=== PATIENT | male | born 1940 | race Caucasian/White ===

== ENCOUNTER 2016-05-22 17:04 | Emergency (ER) ==
[2016-05-22] MEDS ORDERED: LABETALOL IV ONE (17:29)
--- NOTE | 2016-05-22 17:40 | PROVIDER DOCUMENTATION ---
HPI-Cardiac General - General Source: patient, EMS - History of Present Illness-Cardiac Quality of Pain: reports: none Severity in ED: mild Onset/Duration: just prior to arrival Timing: improving Context/Activities at Onset: reports: none Palpitation Quality: fast/pounding heart beat History of arrythmia: reports: SVT Recent use of:: reports: no stimulants Nitro Today/Relief: reports: no nitro taken today Aspirin Treatment Today: reports: no aspirin today Similar Symptoms Previously?: Yes Recently Seen Here or By Another Healthcare Provider: No <Romina Sauceda - Last Filed: 05/22/16 17:35> <Nitin Mcfarlane - Last Filed: 05/22/16 19:06> - General Chief Complaint: Palpitations Stated Complaint: elevated hr Time Seen by Provider: 05/22/16 17:12 Allergies/Adverse Reactions: Patient Allergies Allergy/AdvReac Type Severity Reaction Status Date / Time No Known Allergies Allergy Verified 05/22/16 17:17 Home Medications: Home Medication List Medication Instructions Recorded Confirmed Last Taken Type Albuterol Sulfate Inhaler 2 puff INH BID PRN 05/28/15 05/22/16 05/22/16 13:00 History [Ventolin Hfa] Aspirin [Ecotrin] 81 mg PO QPM 05/28/15 05/22/16 05/21/16 21:00 History Diltiazem HCl [Cartia Xt] 1 cap PO BID 05/28/15 05/22/16 05/22/16 09:30 History Tamsulosin [Flomax] 0.4 mg PO QPM 05/28/15 05/22/16 05/21/16 21:00 History Simvastatin 20 mg PO BID 05/22/16 05/22/16 05/22/16 09:30 History - History of Present Illness-Cardiac Nature of Presenting Problem: Reports to er by ems with cc of SVT.PT reports hx of SVT and knows when he is in it states had call 911. EMS reports pt was in fact in SVT HR at 125 upon arrival ems had done vago maneuvurs and pt heart rate had decreased. Pt denies cp,sob,n,v. 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 Hx of PAD,copd, svt,htn,hld. Denies being on home o2. (Romina Sauceda) Review of Systems - Adult - REVIEW OF SYSTEMS - ADULT Constitutional: denies: chills, fever, fatique Eyes: reports: no symptoms reported Ears, Nose, Mouth & Throat: reports: no symptoms reported Cardiovascular: reports: irregular heart rate. denies: chest pain, heart murmur , orthopnea, syncope Respiratory: denies: cough, shortness of breath, wheezing Gastrointestinal: reports: no symptoms reported Genitourinary: reports: no symptoms reported Musculoskeletal: reports: no symptoms reported Integumentary: reports: no symptoms reported Neurological: reports: no symptoms reported Psychiatric: reports: no symptoms reported Endocrine: reports: no symptoms reported Hematologic/Lymphatic: reports: no symptoms reported Allergic/Immunologic: reports: no symptoms reported All Other Systems: Reviewed and Negative <Romina Sauceda - Last Filed: 05/22/16 17:35> Past History - Adult - PAST MEDICAL HISTORY-ADULT Review of Records: reports: Nursing Assessment Review, Medications Reviewed Major Childhood Illnesses: reports: denies history Cardiovascular: reports: arrhythmia, HTN, hyperlipidemia Respiratory: reports: COPD Gastrointestinal: reports: denies history Obstetrical/Gynecological: reports: denies history Genitourinary: reports: denies history Musculoskeletal: reports: denies history Neurological: reports: denies history Endocrine/Immune: reports: denies history Other Conditions: reports: denies history - PRIOR SURGERIES/PROCEDURES Surgical/Procedure History: reports: appendectomy, other (carotidectomy) - IMMUNIZATION STATUS Childhood Immunizations: See Nurse Assessment Flu Vaccine: See Nurse Assessment - FAMILY HISTORY Family History: reviewed, not pertinent - SOCIAL HISTORY Smoking: cigarettes, greater than 1 pack/day Provider spent 3-5 mins advising pt. on dangers of tobacco.: Discussed manners to quit use, and f/u contacts for add'l counseling. Substance Use: none/never <Romina Sauceda - Last Filed: 05/22/16 17:35> Physical Exam-General - PHYSICAL EXAM-ADULT Initial Vital Signs Reviewed: Yes - CONSTITUTIONAL General Appearance: appears well, alert, no apparent distress - EYES Eyes: PERRL/EOMI - HEAD, EARS, NOSE, MOUTH & THROAT HENMT: moist mucous membranes, normal ENT inspection, TMs normal, pharynx normal - RESPIRATORY Respiratory: chest non-tender, lungs clear, normal breath sounds, no pleuratic chest pain, no respiratory distress, no accessory muscle use - CARDIOVASCULAR Cardiovascular: regular rate, rhythm, tachycardia - GASTROINTESTINAL (ABDOMEN) Abdominal Exam: normal bowel sounds, non tender, soft, no organomegaly, no pulsatile mass - MUSCULOSKELETAL Back Exam: normal inspection, no CVA tenderness, no vertebral tenderness Extremity: normal range of motion, no calf tenderness, normal capillary refill, pelvis stable, pedal edema - SKIN Integumentary: normal color, normal turgor, warm/dry - NEUROLOGIC Neurologic: reversing mill roller II-XII nml as tested, grossly normal, no motor/sensory deficits - PSYCHIATRIC Psych/Mental Status: normal mood/affect, normal thought content, normal thought process, oriented x 3 <Romina Sauceda - Last Filed: 05/22/16 17:35> Progress - EKG 1 Time of EKG reading by physician:: 17:04 EKG Read and Signed by:: Ariana Huang EKG Interpretation (*Must complete 3 of following elements*): Abnormal Rate: 111 Rhythm: sinus tach [place]: normal QRS: RBB MA Interval: normal - CHANGE OF SHIFT REPORT (ED Provider) Report Given and Care Transferred to:: Time of Transfer: 18:00 Items Pending: Labs <Romina Sauceda - Last Filed: 05/22/16 17:35> - XRAY 1 XRAY Study: Chest Impression: Abnormal XRAY Interpretation: COPD Changes, nothing acute read by Dr Dotson <Nitin Mcfarlane - Last Filed: 05/22/16 19:06> - PLAN OF CARE/RESULTS Progress/Plan/Lab Results: Orders Category Date Time Status Cardiac Monitoring DIRECTED Care 05/22/16 17:30 Active Saline Loc NOW Care 05/22/16 17:30 Active CHEST-PORTABLE [RAD] Stat Exams 05/22/16 17:29 Ordered CBC WITH ELECTRONIC DIFF [HEME] Stat Lab 05/22/16 17:30 Uncollected CK PROFILE [SP CHEM] Stat Lab 05/22/16 17:30 Uncollected COMPREHENSIVE METABOLIC PANEL [CHEM] Stat Lab 05/22/16 17:30 Uncollected D-DIMER [CHEM] Stat Lab 05/22/16 17:30 Uncollected MAGNESIUM [CHEM] Stat Lab 05/22/16 17:30 Uncollected PRO B-NATRIURETIC PEPTIDE Stat Lab 05/22/16 17:30 Uncollected PROTIME WITH INR [COAG] Stat Lab 05/22/16 17:30 Uncollected PTT [COAG] Stat Lab 05/22/16 17:30 Uncollected TROPONIN T Stat Lab 05/22/16 17:30 Uncollected Labetalol Med 05/22/16 17:29 Discontinued 15 mg IV NOW ONE EKG [EKG] Stat Ther 05/22/16 17:06 Ordered Vital Signs - 24 hr 05/22/16 17:15 Temperature 98.6 F Pulse Rate 110 H Respiratory 20 Rate Blood Pressure 180/87 O2 Sat by Pulse 98 Oximetry (Romina Sauceda) Orders Category Date Time Status Cardiac Monitoring DIRECTED Care 05/22/16 17:30 Active Saline Loc NOW Care 05/22/16 17:30 Active CHEST-PORTABLE [RAD] Stat Exams 05/22/16 17:29 Taken CBC WITH ELECTRONIC DIFF [HEME] Stat Lab 05/22/16 18:02 Completed CK PROFILE [SP CHEM] Stat Lab 05/22/16 18:02 Received COMPREHENSIVE METABOLIC PANEL [CHEM] Stat Lab 05/22/16 18:02 Received D-DIMER [CHEM] Stat Lab 05/22/16 18:02 Completed MAGNESIUM [CHEM] Stat Lab 05/22/16 18:02 Received PRO B-NATRIURETIC PEPTIDE Stat Lab 05/22/16 18:02 Completed PROTIME WITH INR [COAG] Stat Lab 05/22/16 18:02 Completed PTT [COAG] Stat Lab 05/22/16 18:02 Completed TROPONIN T Stat Lab 05/22/16 18:02 Completed Labetalol Med 05/22/16 17:29 Discontinued 15 mg IV NOW ONE EKG [EKG] Stat Ther 05/22/16 17:06 Ordered Vital Signs Temp Pulse Resp BP Pulse Ox 05/22/16 18:15 108 H 20 161/115 98 05/22/16 17:15 98.6 F 110 H 20 180/87 98 No Known Allergies Allergy (Verified 05/22/16 17:17) Albuterol Sulfate Inhaler [Ventolin Hfa] 2 puff INH BID PRN 05/28/15 Aspirin [Ecotrin] 81 mg PO QPM 05/28/15 Diltiazem HCl [Cartia Xt] 1 cap PO BID 05/28/15 Tamsulosin [Flomax] 0.4 mg PO QPM 05/28/15 Simvastatin 20 mg PO BID 05/22/16 I&O 05/21/16 05/22/16 05/23/16 06:59 06:59 06:59 Output Total 100 Balance -100 Laboratory 05/22/16 05/22/16 05/22/16 18:02 18:02 18:02 WBC RBC Hgb Hct MCV MCH MCHC RDW Std Deviation Plt Count MPV Immature Gran % (Auto) Neut % (Auto) Lymph % (Auto) Wood % (Auto) Eos % (Auto) Baso % (Auto) Immature Gran # (Auto) Neut # (Auto) Lymph # (Auto) Wood # (Auto) Eos # (Auto) Baso # (Auto) PT 13.9 H INR 1.37 PTT (Actin FS) 37.3 H D-Dimer Troponin T < 0.010 Bab-E-Krdcduofypa Pept 25 05/22/16 05/22/16 18:02 18:02 WBC 3.71 L RBC 2.97 L Hgb 9.1 L Hct 27.5 L MCV 92.6 MCH 30.6 MCHC 33.1 RDW Std Deviation 13.0 Plt Count 104 L MPV 10.5 H Immature Gran % (Auto) 0.0 Neut % (Auto) 65.2 Lymph % (Auto) 24.5 Wood % (Auto) 7.3 Eos % (Auto) 2.7 Baso % (Auto) 0.3 Immature Gran # (Auto) 0.00 Neut # (Auto) 2.42 Lymph # (Auto) 0.91 L Wood # (Auto) 0.27 Eos # (Auto) 0.10 Baso # (Auto) 0.01 PT INR PTT (Actin FS) D-Dimer 0.41 Troponin T Fnx-T-Mjdditerogn Pept (Nitin Mcfarlane) Departure <Romina Sauceda - Last Filed: 05/22/16 17:35> - Departure Time of Disposition Order: 19:05 Certified Medical Emergency: Emergent <Nitin Mcfarlane - Last Filed: 05/22/16 19:06> - Departure DIAGNOSIS: SVT (supraventricular tachycardia) Disposition: HOME 01 Condition: Stable Additional Instructions: Follow up with Dr Hawkins ED Follow Up Instructions: You have been treated by a care provider in the Emergency Department. These instructions are being provided to you so you can have an understanding of how to care for yourself upon discharge. Upon discharge from the Emergency Department, you are responsible for making arrangements for follow-up care by a physician of your choice. Take all prescribed medications as directed. Return to the Emergency Department immediately for any new or worsening symptoms. You may call the Physician Referral phone number at [phone] to obtain a list of Physicians who are taking new patients. Referrals: Heladio Wood MD [Primary Care Provider] - Mj Hawkins MD [STAFF PHYSICIAN] - Attestation - Scribe Verification/Attestation Scribe:: Romina Sauceda Acting as Scribe for:: Ariana Huang Scribe documention review:: This chart was documented by a scribe and accurately reflects the service the provider performed and the decisions made by the provider. - Scribe Verification/Attestation #2 Shift Change Time: 18:00 Scribe Name: Nitin Mcfarlane Acting as Scribe for:: Prabhjot Dotson <Romina Sauceda - Last Filed: 05/22/16 17:35> - Scribe Verification/Attestation Scribe:: Nitin Mcfarlane Acting as Scribe for:: Prabhjot Dotson Scribe documention review:: This chart was documented by a scribe and accurately reflects the service the provider performed and the decisions made by the provider. <Nitin Mcfarlane - Last Filed: 05/22/16 19:06> Physician Attestation - Physician Attestation I, the provider, attest to the following statement:: Ariana Huang Physician documentation Attestation:: This documentation recorded by the scribe accurately reflects the service I personally performed and the decisions made by me. <Romina Sauceda - Last Filed: 05/22/16 17:35>
[2016-05-22 19:52] LABS: MANUAL DIFF NEEDED? NO
[2016-05-22 20:11] LABS: AGAP 14; ALBUMIN 4.3 g/dL (3.5-5.0); ALKALINE PHOSPHATASE 93 U/L (32-122); BUN 10 mg/dL (8-22); CALCIUM 9.4 mg/dL (8.8-10.2); CHLORIDE 104 mmol/L (98-107); CK PROFILE 80 U/L (24-204); COSMO 290; GOT 13 U/L (10-34); GPT 16 U/L (10-44); MAGNESIUM 2.1 mg/dL (1.5-2.7); POTASSIUM 4.1 mmol/L (3.5-5.1); SODIUM 146 mmol/L (136-145); TCO2 28 mmol/L (25-35); TOTAL BILIRUBIN 0.32 mg/dL (0.20-1.00); TOTAL PROTEIN 6.6 g/dL (6.3-8.3)
[2016-05-22 20:18] LABS: INR 1.02; PROTIME 10.4 Seconds (9.2-11.7); PTT 25.4 Seconds (22.0-36.0)
[2016-05-22 21:08] LABS: BASO% 0.4 % (0.0-0.8); EOS# 0.17 X1000 (0.0-0.7); EOS% 2.1 % (0.0-10.0); HEMATOCRIT 45.9 % (42.0-52.0); HEMOGLOBIN 15.8 g/dL (14.0-18.0); IMM GRAN# 0.03 X1000 (0.0-0.04); IMM GRAN% 0.4 % (0.0-0.5); LYMPH# 2.19 X1000 (1.2-3.4); LYMPH% 27.1 % (20.5-51.1); MCH 31.3 PG (27-31); MCHC 34.4 g/dL (33-37); MCV 91.1 FL (81-99); MONO# 0.61 X1000 (0.11-0.59); MONO% 7.5 % (1.7-9.3); MPV 11.1 FL (7.4-10.4); NEUT% 62.5 % (42.2-75.2); PLT 193 X1000 (130-400); RBC 5.07 XMIL (4.7-6.1)
[2016-05-22 21:48] VITALS: BP 151/79
--- NOTE | 2016-05-23 05:24 | EKG Report ---
Test Performed on : 05/22/2016 5:04:48 PM Test Reason : palpitations Blood Pressure : / mmHG Vent. Rate : 111 BPM Atrial Rate : 111 BPM P-R Int : 176 ms QRS Dur : 136 ms QT Int : 350 ms P-R-T Axes : 027 148 019 degrees QTc Int : 476 ms Sinus tachycardia. Right bundle branch block Abnormal ECG When compared with ECG of 28-MAY-2015 00:40, QRS duration has increased Unconfirmed Result
--- NOTE | 2016-05-23 07:39 | Diag Imaging Result Document ---
PROCEDURE NAME: CHEST-PORTABLE - 05/22/2016 PORTABLE CHEST X-RAY: COMPARISON: 05/28/2015. FINDINGS: The lungs are normally expanded and clear. Heart size and mediastinal contours are normal. No pneumothorax or pleural effusion. IMPRESSION: Negative exam.
== END 2016-05-22 21:48 | disposition home or self-care (01) ==
LOC: ED 17:04
DX: I47.1 Supraventricular tachycardia (principal); R94.31 Abnormal electrocardiogram [ECG] [EKG]; R00.2 Palpitations; I10 Essential (primary) hypertension; E78.5 Hyperlipidemia, unspecified; J44.9 Chronic obstructive pulmonary disease, unspecified; F17.210 Nicotine dependence, cigarettes, uncomplicated; Z79.82 Long term (current) use of aspirin; Z79.899 Other long term (current) drug therapy; Z71.6 Tobacco abuse counseling
CPT/HCPCS: 71010; 80053; 82550; 83735; 83880; 84484; 85025; 85379; 85610; 85730; 93005

== ENCOUNTER 2018-11-13 09:50 | Inpatient (IN) ==
[2018-11-13] MEDS ORDERED: DILAUDID IV PRN (15:02)
[2018-11-13] MEDS ORDERED: LOVENOX SUBQ SCH (15:15)
[2018-11-13 16:02] LABS: BASO# 0.03 X1000 (0.0-0.2); BASO% 0.6 % (0.0-0.8); EOS# 0.16 X1000 (0.0-0.7); EOS% 3.3 % (0.0-10.0); HEMATOCRIT 35.8 % (42.0-52.0); LYMPH# 1.56 X1000 (1.2-3.4); LYMPH% 31.8 % (20.5-51.1); MCH 30.8 PG (27-31); MCHC 33.5 g/dL (33-37); MCV 91.8 FL (81-99); MONO# 0.28 X1000 (0.11-0.59); MONO% 5.7 % (1.7-9.3); MPV 10.7 FL (7.4-10.4); NEUT# 2.87 X1000 (1.4-6.5); NEUT% 58.6 % (42.2-75.2); PLT 190 X1000 (130-400); RDW 13.6 % (11.5-14.5)
[2018-11-13] MEDS: NS 1,000 ML IV SCH (16:08)
[2018-11-13] MEDS: PROTONIX IV SCH (16:09)
[2018-11-13 16:16] LABS: INR 1.04; PROTIME 13.7 Seconds (11.0-16.0)
[2018-11-13 16:31] LABS: AGAP 11; ALB/GLOB RATIO 2.5; ALBUMIN 4.3 g/dL (3.5-5.0); ALKALINE PHOSPHATASE 96 U/L (32-122); BUN 12 mg/dL (8-22); CALCIUM 9.5 mg/dL (8.8-10.2); CHLORIDE 105 mmol/L (98-107); COSMO 281; CREATININE 0.7 mg/dL (0.7-1.2); ESTIMATED GFR > 60; GLUCOSE 125 mg/dL (70-104); GOT 11 U/L (10-34); GPT 9 U/L (10-44); SODIUM 140 mmol/L (136-145); TCO2 24 mmol/L (25-35)
[2018-11-13 17:03] LABS: SED RATE 10 mm/hr (0-15)
[2018-11-13] MEDS ORDERED: KEFZOL 2 GM/D5W 2 GM/50 ML IVPB IV ONE (18:00)
--- NOTE | 2018-11-13 18:37 | Diag Imaging Result Doc PS360 ---
EXAM: XRAY PELVIS W/HIP 2-3VW RT INDICATION: Right Hip Metastatic Lesion TECHNIQUE: 3 views COMPARISON: None. FINDINGS: The bones are osteopenic. The known sclerotic metastatic lesion involving the right femoral neck seen on previous CT is barely perceptible on this plain radiograph. No fracture or dislocation is appreciated. Brachytherapy beads are noted projecting over the lower pelvis. IMPRESSION: Very vague sclerotic lesion involving the right femoral neck that is barely perceptible but is much better seen on a recent CT. Electronically signed by Kristopher Urrutia 11/13/2018 6:35 PM
--- NOTE | 2018-11-13 19:01 | ORTHOPAEDICS CONSULTATION ---
DATE: 11/13/2018 CHIEF COMPLAINT: Right femur pain. HISTORY OF PRESENT ILLNESS: Supa Royal is a 78-year-old male who has been having intermittent right femur pain to the point where he states it actually hurts him to lay down. He has to sit up or walk. He has been seeing Dr. Mckay. Dr. Mckay felt he needed to be admitted after he found that he had a metastatic lesion to his right proximal femur on CT scan. Dr. Mckay stated that his bone scan and PET scan also showed metastatic lesion at the right proximal femur that was blastic and consistent with probably prostate as he has a history of prostate cancer in the past. He has a history of low back pain with DDD and he assumed his pain was from his back. PHYSICAL EXAMINATION: General: Reveals a well-developed well-nourished male. He is alert and cooperative. HEENT: He is hard of hearing, but otherwise cooperative. Extremities: His legs are neurovascularly intact. He does not really having any pain with range of motion at this hip. His leg is neurovascularly intact. REVIEW OF SYSTEMS: Negative for all systems except for as noted above. X-RAYS: I have reviewed his CT scan which shows a sclerotic metastatic lesion in the right proximal femur. This goes across the entire neck and past the calcar to the less trochanter. There is significant DDD of the lumbar spine. IMPRESSION: Right proximal femur metastatic lesion. PLAN: Given his lack of pain and I do not really see significant arthritis in his hip, probably the best option is to place a trochanteric fixation nail and we would get a biopsy and at the same time after the nail was placed he can undergo radiation if needed for the lesion. I am going to get a plain x-ray tonight to assess the extent of the lesion on x-ray and also to evaluate his hips. I suspect the majority of his pain is from his back. cc: MD Michele Hernandez MD Zz Unknown MTDD
[2018-11-13] MEDS: VENTOLIN HFA INH PRN (19:35)
--- NOTE | 2018-11-13 19:46 | HISTORY AND PHYSICAL ---
CHIEF COMPLAINT: Intractable right hip pain for the last 2 weeks, history of fall. HISTORY OF PRESENT ILLNESS: A 78-year-old, white male, had a fall, sustained injury to the right chest and hip pain. Apparently, he was seen in the emergency room on 10/26/2018. During that time, patient was found to have metastatic lesion in the right hip. Subsequently, he was evaluated in my office. He has known history of prostate cancer since 2013, He had radiation seeds implanted in the prostatic bed in 2003, at [facility]. Last PSA was 5.6 in my office. Bone scan revealed right hip lesion was hot as well as the right 10th rib anteriorly. He was seeing also Dr. Perez and he ordered a PET scan, MRI of the right hip. Caregiver reported he was not able to ambulate with excruciating pain, even barely go to the bathroom. He was not able to do MRI. Subsequently, he had some PET scan done, details are not known. I spoke to the interventional radiologist for possible bone marrow biopsy, most likely metastatic disease from prostate cancer. Since he has ongoing pain, not able to ambulate, is about impending fracture, the best option after discussing with the interventional radiologist, admit to the hospital for pain control, and Orthopedic consult for either internal fixation with mao or replacement with bone marrow biopsy. PSA was elevated at 8.6. Pain is adequately controlled with the Dilaudid. I discussed with Dr. Nails and the coordination of care was done through all of the consultants on the telephone since yesterday, and that is the best option to forward, and the family agreed upon. PAST MEDICAL HISTORY: Right bundle-branch block, prostate cancer in remission with radiation seeds, COPD, deafness, hyperlipidemia, hypertension, PSVT, peripheral arterial disease with status post right endarterectomy, ongoing tobacco abuse, claudication symptoms in both legs (MARILYN 0.5, under the care of Dr. Stuart), seborrheic keratosis lesion of the right face. PAST SURGICAL HISTORY: Appendectomy, vasectomy, right carotid endarterectomy. MEDICINES: Aspirin, Plavix, simvastatin, Flomax, Cardizem 120 p.o. b.i.d. ALLERGIES: Not known. SOCIAL HISTORY: since 2014. He is retired from [employer] of [place], [place]. Living in [place]. No smoking. No alcohol. No drug abuse. FAMILY HISTORY: Father of stroke at 63. Mom of diabetes at 71. HEALTH MAINTENANCE: Last physical in 08/2017. REVIEW OF SYSTEMS: HEENT: Deafness. No headache. No vision problem. No goiter or lymphadenopathy. No bruit. Cardiopulmonary: No chest pain, shortness of breath, PND, orthopnea. Gastrointestinal: No nausea, vomiting, abdominal pain. Genitourinary: No history of dysuria, hesitancy, frequency. Claudication symptoms, right hip pain. Neurologic: No focal symptoms or weakness. PHYSICAL EXAMINATION: VITAL SIGNS: Temperature is 97 degrees, pulse is 88, blood pressure is stable. Six feet tall, 240 pounds. HEENT: Severe deafness. Pupils equal, reactive to light. No anemia. No cyanosis. No jaundice. NECK: Supple. No lymphadenopathy. Scar in the right carotid area noted. CHEST: Bilateral air entry. CARDIOVASCULAR: Heart sounds are regular. No murmurs. ABDOMEN: Belly is soft, nontender. Good bowel sounds. No masses palpable and no signs of gangrene. NEUROLOGIC: No obvious neurological deficits. LABORATORY AND DIAGNOSTIC DATA: CBC: White cell count 4.9, hematocrit 35.8, platelets 119,000. PT 13.7, INR 1.0. SMA 7 is normal. LFTs were normal. Total protein 6. PSA was 8.91. Right hip and pelvic x-rays: Bones are osteopenic, sclerotic, metastatic involved right femoral neck. CT scan of the abdomen and pelvis: Bony metastasis in the proximal right femur. Bone scan at [facility]: Right hip was hot and also right 10th rib anteriorly noted. Last cardiac stress test was done on 10/16/2015. ASSESSMENT AND PLAN: A 78-year-old, white gentleman, admitted to the hospital with: 1. Intractable right hip pain, suspicious metastatic lesion, impending fracture. A.) Plan is Orthopedic consult for fixation and bone marrow biopsy. PSA was increasing. Remote history of prostate cancer since 2013, status post radiation seeds in the prostate bed. B.) Reconcile home medicines. C.) Pain control with hydromorphone. D.) Gentle hydration. 2. Peripheral arterial disease with underlying peripheral arterial disease in both legs. Continue aspirin, Plavix. Under the care of Dr. Stuart. 3. Hypertension. Cardizem CD. 4. Deep vein thrombosis and gastrointestinal prophylaxis with Lovenox, Protonix, respectively. Discussed with Dr. Nails. We will follow up. cc: Michele Mckay MD
[2018-11-13] MEDS: FLOMAX PO SCH (23:06)
[2018-11-13] MEDS: ZOCOR PO SCH (23:06)
[2018-11-13] MEDS: CARDIZEM CD PO SCH (23:06)
[2018-11-13] MEDS: ASPIRIN EC PO SCH (23:06)
[2018-11-14] MEDS ORDERED: XYLOCAINE-MPF 2% ONE (07:51)
[2018-11-14] MEDS ORDERED: ZOFRAN ONE (07:51)
[2018-11-14] MEDS ORDERED: ROBINUL ONE (07:51)
[2018-11-14] MEDS ORDERED: DECADRON ONE (07:51)
[2018-11-14] MEDS ORDERED: DIPRIVAN 1% ONE (07:52)
[2018-11-14] MEDS ORDERED: FENTANYL ONE (07:52)
[2018-11-14] MEDS ORDERED: KEFZOL 2 GM/D5W 2 GM/50 ML IVPB IV ONE (10:00)
[2018-11-14] MEDS ORDERED: KEFZOL 2 GM/D5W 2 GM/50 ML IVPB ONE (10:40)
[2018-11-14] MEDS ORDERED: MORPHINE ONE (12:33)
--- NOTE | 2018-11-14 12:46 | PROGRESS NOTE ---
DATE: 11/14/2018 SUBJECTIVE: A 78-year-old white gentleman admitted to the hospital with right hip pain and suspicious bone metastatic disease. Appreciate Dr. Nails. The patient is undergoing metabolic bone marrow biopsy. PSA was high. REVIEW OF SYSTEMS: None reported. Pain is adequately controlled. Vital are stable. Physical exam: No change. ASSESSMENT AND PLAN: 1. Waiting for right hip intramedullary nailing and biopsy and follow up on the biopsy report. 2. I appreciate Dr. Nails's consult and continue present treatment and will follow up. LEVEL OF DOCUMENTATION: 25 minutes. cc: Michele Mckay MD
[2018-11-14] MEDS ORDERED: OXY IR ONE (12:48)
[2018-11-14] MEDS ORDERED: MILK OF MAGNESIA PO PRN (13:49)
[2018-11-14] MEDS ORDERED: ZOFRAN IV PRN (13:49)
[2018-11-14] MEDS ORDERED: HALDOL IV PRN (14:00)
[2018-11-14] MEDS: NS 1,000 ML IV SCH (14:10)
[2018-11-14] MEDS: FLOMAX PO SCH ×2 (14:10→22:41)
[2018-11-14] MEDS: CARDIZEM CD PO SCH ×3 (14:10→22:41)
[2018-11-14] MEDS: TYLENOL PO SCH ×2 (14:20→22:42)
[2018-11-14] MEDS: SODIUM CHLORIDE 0.9% INJ SCH (14:20)
[2018-11-14] MEDS: PROTONIX IV SCH (14:20)
--- NOTE | 2018-11-14 14:35 | OPERATIVE NOTE ---
PROCEDURE DATE: 11/14/2018 PREOPERATIVE DIAGNOSIS: Right proximal femoral metastatic lesion of a blastic type. POSTOPERATIVE DIAGNOSIS: Right proximal femoral metastatic lesion of a blastic type. PROCEDURE: Right long trochanteric fixation nail placement and the reamings were sent to Pathology. BLOOD LOSS: Minimal. ANESTHESIA: General. SURGEON: Willie Nails MD. COMPLICATIONS: None. SPECIMENS: Reamings to Pathology. DESCRIPTION OF PROCEDURE: The patient was brought to the operative suite and placed in supine position. After successful administration of general anesthesia, patient was placed on the OSI table in the usual position for a right trochanteric fixation nail placement. The right hip and leg were prepped and draped in the usual sterile fashion. A longitudinal incision was made proximal to the greater trochanter. A guide pin was placed in the center of the femoral canal on AP and lateral images. It was reamed with a solid cannulated reamer. These reamings were saved for being sent to Pathology. Then, a ball-tipped guide pin was buried in distal metaphysis. The proper length nail of 420 mm was measured. The canal was serially broached to a size 13 with the flexible reamers. These reamings were sent as well, and then the 420 mm x 11 trochanteric fixation nail was driven into place through a stab incision laterally. A guide pin was placed in the center of the femoral head on AP and lateral images. Once this was verified to be in good position, it was measured at 105 mm. It was reamed and these reamings were also sent to Pathology, and then the 105 mm helical blade was driven into place and locked proximally. The proximal guide was removed. Traction was released. Excellent placement of the hardware was obtained on AP and lateral images. Attention was directed to distal locking screws through stab incisions using the perfect circles technique. These were drilled and measured to proper length of 54 and 64, and they were driven into place. Once these were verified to be in good position, the incisions were copiously irrigated. The fascia was closed with 0 Vicryl, skin edges were approximated with 2-0 Vicryl, and skin was closed with skin rob and a sterile dressing was applied. The patient tolerated the procedure without complication. At the end of the procedure, all counts were correct. The patient was transferred to the recovery room in stable condition. cc: Willie Nails MD
[2018-11-14] MEDS: MORPHINE IV PRN ×2 (14:57→18:46)
[2018-11-14] MEDS: VENTOLIN HFA INH PRN ×2 (15:31→19:04)
[2018-11-14] MEDS: OXY IR PO PRN (17:35)
[2018-11-14] MEDS: KEFZOL 1 GM/D5W 1 GM/50 ML IVPB IV SCH (18:46)
[2018-11-14] MEDS: PERIDEX MT SCH (22:40)
[2018-11-14] MEDS: ZOCOR PO SCH (22:41)
[2018-11-14] MEDS: COLACE PO SCH (22:41)
[2018-11-14] MEDS: ASPIRIN EC PO SCH (22:41)
[2018-11-15] MEDS: KEFZOL 1 GM/D5W 1 GM/50 ML IVPB IV SCH ×2 (02:08→10:18)
[2018-11-15] MEDS: OXY IR PO PRN ×3 (02:17→21:01)
[2018-11-15] MEDS: TYLENOL PO SCH ×3 (05:31→21:00)
[2018-11-15] MEDS: LOVENOX SUBQ SCH (05:32)
[2018-11-15 06:18] LABS: AGAP 14; BUN 14 mg/dL (8-22); CALCIUM 9.2 mg/dL (8.8-10.2); CHLORIDE 103 mmol/L (98-107); COSMO 281; CREATININE 0.8 mg/dL (0.7-1.2); ESTIMATED GFR > 60; GLUCOSE 145 mg/dL (70-104); POTASSIUM 4.5 mmol/L (3.5-5.1); SODIUM 139 mmol/L (136-145); TCO2 22 mmol/L (25-35)
--- NOTE | 2018-11-15 08:03 | ORTHOPAEDICS PROGRESS NOTE ---
DATE: 11/15/2018 SUBJECTIVE: Supa Royal is a 78-year-old male who is postoperative day 1 from a right TFN. He has complaints of soreness and swelling in his legs, but otherwise no new complaints. OBJECTIVE: He is a well-developed, well-nourished male. He is cooperative with the exam, just hard of hearing. His dressings are clean, dry, and intact. His leg is neurovascularly intact. He is more comfortable sitting up than lying down. LABORATORY DATA: His hemoglobin is 9. His hematocrit is 27. ASSESSMENT: Stable right trochanteric fixation nail placement. PLAN: We will get therapy to work with him today. He will likely go home versus rehab later in the week, once we get the pathology back and Dr. Perez can address his cancer. cc: MD Michele Hernandez MD
[2018-11-15] MEDS: NS 1,000 ML IV SCH (10:18)
[2018-11-15] MEDS: FLOMAX PO SCH ×2 (10:19→21:00)
[2018-11-15] MEDS: FERROUS SULFATE PO SCH (10:19)
[2018-11-15] MEDS: CARDIZEM CD PO SCH ×2 (10:19→21:00)
[2018-11-15] MEDS: PERIDEX MT SCH ×2 (10:19→21:02)
--- NOTE | 2018-11-15 11:58 | PROGRESS NOTE ---
DATE: 11/15/2018 SUBJECTIVE: I appreciated Dr. Nails. The patient has intramedullary nail on the right hip. Biopsy was done. The patient's pain is adequately controlled. OBJECTIVE: Vital signs: Temperature s 98, pulse 107. Vitals are stable. HEENT: Within normal limits. Neck: Supple. Physical exam with no change. LABS: Hematocrit 27. SMA-7 is normal. PSA was 8.9. ASSESSMENT AND PLAN: Right hip metastatic disease, most likely prostate. We will check the biopsy report. He had a nail placed. Based on the biopsy report, further recommendations will be followed with Dr. Perez and will discuss the plan. We will continue out of the bed with physical therapy and currently medically stable. Continue present treatment for underlying medical problems. LEVEL OF DOCUMENTATION: 25 minutes. cc: Michele Mckay MD
[2018-11-15] MEDS: SODIUM CHLORIDE 0.9% INJ SCH (15:06)
[2018-11-15] MEDS: PROTONIX IV SCH (15:06)
--- NOTE | 2018-11-15 15:44 | CONSULTATION ---
DATE OF CONSULTATION: 11/15/2018 CHIEF COMPLAINT: Phimosis and history of prostate cancer. HISTORY OF PRESENT ILLNESS: Mr. Royal is a 78 year old with peripheral artery disease, COPD, deafness, tobacco abuse, history of prostate cancer status post brachytherapy, who was admitted by his primary care physician due to concern regarding hip fracture. The patient has had multiple imaging studies with bone scan, CT scan and x-ray which showed concern for metastatic lesion in his right femur. The patient was treated for prostate cancer with brachytherapy while living in [facility] in 2003. The patient had a recent PSA at Dr. Mckay's office that was 5.6 with a PSA on admission of 8.9. The patient was seen by Dr. Perez who ordered a PET scan and MRI; however, the patient was not able to tolerate being in an MRI scanner. The patient was taken the operating room yesterday for right femoral intramedullary nailing by Dr. Nails. Urology was consulted today regarding phimosis. The patient states that his foreskin has tightened on him very quickly over the past several months and he feels there is a band like lesion in the foreskin. He denies any dysuria or hematuria. He does occasionally have some urgency to urinate but feels that he empties his bladder to completion. Denies any flank or abdominal pain. PAST MEDICAL HISTORY: 1. Right bundle branch block. 2. Prostate cancer status post brachytherapy. 3. COPD. 4. [place] impairment. 5. Hyperlipidemia. 6. Hypertension. 7. Paroxysmal ventricular tachycardia. 8. Peripheral artery disease. 9. Tobacco abuse. 10. History of seborrheic keratosis. PAST SURGICAL HISTORY: 1. Appendectomy. 2. Cholecystectomy. 3. Right carotid endarterectomy. 4. Brachytherapy. MEDICATIONS: 1. Flomax. 2. Cardizem 120 mg p.o. b.i.d. 3. Plavix. 4. Simvastatin 5. Aspirin. ALLERGIES: No known drug allergies. SOCIAL HISTORY: Persistent smoking. Denies alcohol or illicit drug use. FAMILY HISTORY: Denies family history of malignancy. REVIEW OF SYSTEMS: A 12-point review of systems is performed wit all pertinent positives and negatives in HPI. PHYSICAL EXAMINATION: Vital signs: Temperature 97.8 degrees, heart rate 107, blood pressure 156/51, oxygen saturation 100% on room air. General: No acute distress. Resting comfortably in bed. Alert and oriented x3. HEENT: Normocephalic, atraumatic. Pupils equal, round, reactive to light. The patient is significantly hard of hearing and requires yelling for patient to understand. Mucous membranes moist. Neck: Trachea midline. Respiratory: Good respiratory effort without audible wheezing or rales. Abdomen: Soft, nontender, nondistended. No palpable masses or hepatosplenomegaly. Cardiovascular: Regular rate and rhythm with slight tachycardia. There is 1+ lower extremity edema. : No suprapubic tenderness. No CVA tenderness. Uncircumcised phallus with tight foreskin that is difficult to retract. Bilateral testicles palpated, slightly atrophic. Digital rectal exam deferred due to recent hip surgery. Neurologic: Gross motor and sensory intact. Musculoskeletal: Moving all extremities. The patient has a dressing present over the right thigh. No obvious tenderness to palpation. Skin: No obvious skin lesions or rashes. LABS: White blood cell count 4.9, hemoglobin 9, hematocrit 27.0. Sodium 139, potassium 4.5, chloride 103, bicarb 22, BUN 14, creatinine 0.8, glucose 145. ASSESSMENT AND PLAN: Mr. Royal is a 78 year old with right bundle branch block, prostate cancer status post brachytherapy, COPD, deafness, hyperlipidemia, hypertension, paroxysmal ventricular tachycardia, peripheral arterial disease, status post right endarterectomy, tobacco abuse, claudication, seborrheic keratosis, who presents in consultation regarding phimosis and recent right femur fracture. Uncertain if the patient had true metastatic lesion to the hip. However, the patient does have a slightly elevated PSA at 8.9 on admission. The patient had treatment of prostate cancer back in 2003 with brachytherapy and was told he was cured. The patient denies any voiding complaints at this time. The patient's consult was regarding phimosis. The patient does have a tight foreskin but denies any penile pain or dysuria. He does have a phimotic ring that makes it difficult to retract the foreskin over the head of the penis. I do not think that this is surgically necessary to consider a circumcision at this time. However, he likely will need one in the future. The patient currently would not like to undergo one unless medically necessary. No evidence of balanitis or voiding complaints. I think if these developed, then we could consider a circumcision. The patient is being treated for a possible fracture related to prostate cancer. He was seen by Dr. Perez in the office and likely would need zoledronic acid or denosumab to try to treat his bone health. We will start him on vitamin D and calcium as well at this time. If this is a metastatic lesion, likely need androgen deprivation therapy as well which may unfortunately increase his risk of declining bone health. We will plan to follow up in the outpatient setting for management of his phimosis and prostate cancer. From a urologic standpoint, no significant interventions are necessary at this time. We will continue to monitor. Please call with questions or concerns. cc: MD Michele Gomez MD MTDD
[2018-11-15] MEDS: ZOCOR PO SCH (21:00)
[2018-11-15] MEDS: COLACE PO SCH (21:00)
[2018-11-15] MEDS: ASPIRIN EC PO SCH (21:00)
[2018-11-16] MEDS: TYLENOL PO SCH ×2 (05:27→15:54)
[2018-11-16] MEDS: LOVENOX SUBQ SCH (05:27)
[2018-11-16 06:36] LABS: HEMATOCRIT 23.5 % (42.0-52.0); HEMOGLOBIN 7.5 g/dL (14.0-18.0)
[2018-11-16] MEDS ORDERED: NS 500 ML IV ONE (07:34)
[2018-11-16] MEDS: CARDIZEM CD PO SCH ×2 (08:42→20:23)
[2018-11-16] MEDS: FERROUS SULFATE PO SCH (08:42)
[2018-11-16] MEDS: PERIDEX MT SCH ×2 (08:42→20:24)
[2018-11-16] MEDS: FLOMAX PO SCH ×2 (08:43→20:23)
[2018-11-16] MEDS: CITRACAL + D PO SCH (08:43)
[2018-11-16] MEDS: NS 1,000 ML IV SCH (08:45)
--- NOTE | 2018-11-16 12:02 | PROGRESS NOTE ---
DATE: 11/16/2018 SUBJECTIVE: The patient is out of the bed. Discussed with the family. They want to go for rehabilitation. Hematocrit was 23. Waiting for biopsy report. OBJECTIVE: On exam, temperature is 98.5 degrees, vitals are stable. HEENT exam is within normal limits. Chest is clear. Heart sounds are regular. No neurological deficits. INVESTIGATIONS: Hematocrit 23.5. ASSESSMENT AND PLAN: 1. Status post right intramedullary nailing. Follow up on bone marrow biopsy. 2. Elevated prostate-specific antigen. Follow up with Dr. Restrepo. 3. Phimosis, stable. 4. Anemia due to blood loss. Transfusion of 1 unit of packed RBC. 5. Contaminated Land Consultant consult for rehabilitation placement. 6. Continue present treatment. LEVEL OF DOCUMENTATION: 25 minutes. cc: Michele Mckay MD
--- NOTE | 2018-11-16 12:30 | ORTHOPAEDICS PROGRESS NOTE ---
DATE: 11/16/2018 SUBJECTIVE: Supa Royal is a 78-year-old male, status post right femoral nail placement. He states that he is in no pain when he is resting, although his leg does hurt when he is trying to walk. OBJECTIVE: He is a well-developed, well-nourished male. He is alert and cooperative with the exam. His leg is neurovascularly intact. His dressings are clean, dry, intact. His pathology results are not back yet. ASSESSMENT: Right trochanteric fixation nail placement. PLAN: We are going to change his dressings today. He will likely go home versus rehab later in the week. cc: MD Michele Hernandez MD
[2018-11-16] MEDS: VENTOLIN HFA INH PRN (15:30)
[2018-11-16] MEDS: OXY IR PO PRN ×2 (15:54→20:24)
[2018-11-16] MEDS: PROTONIX PO SCH (17:32)
[2018-11-16] MEDS: ZOCOR PO SCH (20:23)
[2018-11-16] MEDS: COLACE PO SCH (20:23)
[2018-11-16] MEDS: ASPIRIN EC PO SCH (20:23)
[2018-11-17] MEDS: NS 1,000 ML IV SCH (03:55)
[2018-11-17 05:59] LABS: BASO# 0.03 X1000 (0.0-0.2); BASO% 0.5 % (0.0-0.8); EOS# 0.23 X1000 (0.0-0.7); HEMOGLOBIN 8.1 g/dL (14.0-18.0); IMM GRAN# 0.04 X1000 (0.0-0.04); IMM GRAN% 0.7 % (0.0-0.5); LYMPH# 1.81 X1000 (1.2-3.4); LYMPH% 31.4 % (20.5-51.1); MCH 29.8 PG (27-31); MCHC 32.4 g/dL (33-37); MCV 91.9 FL (81-99); MONO# 0.67 X1000 (0.11-0.59); MONO% 11.6 % (1.7-9.3); MPV 11.1 FL (7.4-10.4); NEUT# 2.98 X1000 (1.4-6.5); NEUT% 51.8 % (42.2-75.2); PLT 147 X1000 (130-400); RBC 2.72 XMIL (4.7-6.1); RDW 15.9 % (11.5-14.5); WBC 5.76 X1000 (4.8-10.8)
[2018-11-17] MEDS: TYLENOL PO SCH ×4 (06:04→21:27)
[2018-11-17] MEDS: LOVENOX SUBQ SCH (06:04)
[2018-11-17] MEDS: OXY IR PO PRN ×4 (06:04→21:33)
[2018-11-17 06:26] LABS: AGAP 11; BUN 15 mg/dL (8-22); CALCIUM 8.8 mg/dL (8.8-10.2); CHLORIDE 106 mmol/L (98-107); COSMO 283; CREATININE 0.9 mg/dL (0.7-1.2); ESTIMATED GFR > 60; GLUCOSE 114 mg/dL (70-104); POTASSIUM 3.5 mmol/L (3.5-5.1); SODIUM 141 mmol/L (136-145); TCO2 24 mmol/L (25-35)
[2018-11-17] MEDS: PERIDEX MT SCH ×2 (08:22→21:26)
[2018-11-17] MEDS: CARDIZEM CD PO SCH ×2 (08:22→21:26)
[2018-11-17] MEDS: FERROUS SULFATE PO SCH (08:22)
[2018-11-17] MEDS: FLOMAX PO SCH ×2 (08:22→21:27)
[2018-11-17] MEDS: CITRACAL + D PO SCH (08:22)
--- NOTE | 2018-11-17 08:24 | Diag Imaging Result Doc PS360 ---
EXAM: CHEST-1 VIEW 11/17/2018 HISTORY: rehab TECHNIQUE: AP portable upright at 0808 COMMENT: There is no evidence of acute cardiac or pulmonary disease. Compared to 10/26/2018 there has been no significant change in the appearance of the chest. IMPRESSION: Stable chest. Electronically signed by Micheal English 11/17/2018 8:21 AM
[2018-11-17] MEDS: DUONEB (A & A) INH PRN ×3 (08:43→21:05)
--- NOTE | 2018-11-17 13:57 | ORTHOPAEDICS PROGRESS NOTE ---
DATE: 11/17/2018 SUBJECTIVE: Supa Royal is a 78-year-old male who is postoperative day 3 from a intramedullary nailing of his right femur for pathologic lesion of his femoral neck. He states he is feeling better, although his leg is still hurting and he has made minimal progress with physical therapy. Examination reveals a well-developed, well-nourished male. His wounds are healing nicely. There is no sign of infection. His leg is grossly neurovascularly intact. He has only walked about 5 feet with therapy. ASSESSMENT: Stable right leg. PLAN: We are going to continue physical therapy. He will likely need to go to rehab. He will return to see me in 10 days to remove the rob and to check his pathology report. cc: MD Michele Hernandez MD
[2018-11-17] MEDS: PROTONIX PO SCH (16:54)
[2018-11-17] MEDS ORDERED: NS 500 ML IV ONE (21:11)
[2018-11-17] MEDS: ASPIRIN EC PO SCH (21:26)
[2018-11-17] MEDS: ZOCOR PO SCH (21:26)
[2018-11-17] MEDS: COLACE PO SCH (21:27)
--- NOTE | 2018-11-17 21:36 | PROGRESS NOTE ---
DATE: 11/17/2018 SUBJECTIVE: The patient did receive a unit of blood. Some pain in the hip, postop pain. No other complaints. Severe deafness noted. OBJECTIVE: Vitals are stable. Physical exam no change. No signs of gangrene. Sitting out of the bed. LABORATORY DATA: Hematocrit is now 25, white cell count 5.7, platelet count 147,000. SMA 7 is normal. ASSESSMENT AND PLAN: 1. Postoperative anemia. We will go ahead and transfuse a unit of blood. 2. In light of peripheral arterial disease, I would like to keep around 30 and follow up on the biopsy. 3. Continue present treatment. Based on the biopsy, further recommendations will be followed and also assist to go to rehab placement. Lubricating Machine Tender consult pending. Continue present treatment and will check the CBC in the morning. LEVEL OF DOCUMENTATION: 25 minutes. cc: Michele Mckay MD
[2018-11-17] MEDS: MORPHINE IV PRN (23:37)
[2018-11-18] MEDS: TYLENOL PO SCH ×3 (05:47→21:53)
[2018-11-18] MEDS: LOVENOX SUBQ SCH (05:47)
[2018-11-18 06:09] LABS: BASO# 0.01 X1000 (0.0-0.2); BASO% 0.2 % (0.0-0.8); EOS% 3.5 % (0.0-10.0); HEMOGLOBIN 9.8 g/dL (14.0-18.0); IMM GRAN# 0.03 X1000 (0.0-0.04); IMM GRAN% 0.5 % (0.0-0.5); LYMPH# 1.28 X1000 (1.2-3.4); LYMPH% 22.6 % (20.5-51.1); MCH 29.5 PG (27-31); MCHC 32.7 g/dL (33-37); MCV 90.4 FL (81-99); MONO# 0.55 X1000 (0.11-0.59); MONO% 9.7 % (1.7-9.3); MPV 10.7 FL (7.4-10.4); NEUT% 63.5 % (42.2-75.2); PLT 161 X1000 (130-400); RBC 3.32 XMIL (4.7-6.1); RDW 16.8 % (11.5-14.5); WBC 5.67 X1000 (4.8-10.8)
[2018-11-18] MEDS: PERIDEX MT SCH ×2 (09:40→21:54)
[2018-11-18] MEDS: FERROUS SULFATE PO SCH (09:41)
[2018-11-18] MEDS: CITRACAL + D PO SCH (09:41)
[2018-11-18] MEDS: FLOMAX PO SCH ×2 (09:41→21:53)
[2018-11-18] MEDS: CARDIZEM CD PO SCH ×2 (09:41→21:53)
[2018-11-18] MEDS: OXY IR PO PRN ×4 (09:56→23:50)
[2018-11-18] MEDS: PROTONIX PO SCH ×2 (13:52→15:25)
[2018-11-18] MEDS: NS 1,000 ML IV SCH (14:29)
[2018-11-18] MEDS: COLACE PO SCH (21:53)
[2018-11-18] MEDS: ZOCOR PO SCH (21:53)
[2018-11-18] MEDS: ASPIRIN EC PO SCH (21:54)
--- NOTE | 2018-11-18 22:42 | PROGRESS NOTE ---
DATE: 11/18/2018 SUBJECTIVE: The patient is still in a lot of pain, hard of hearing, not able to ambulate, status post 2 units of packed RBC and wants to go for rehab. OBJECTIVE: Vital signs: Temperature is 98. Vitals are stable. Room air 92%. HEENT Exam: Within normal limits. Chest: Clear. Heart: Sounds are regular. Abdomen: Belly is soft, nontender. LABS: CBC: White cell count 5.6, hematocrit 30, platelets 161,000. ASSESSMENT AND PLAN: 1. Right hip intramedullary nailing. 2. I spoke to Dr. Cooney. He is going to expedite the process of the bone biopsy. So far no full report was given. 3. Anemia due to postoperative blood loss. Two units of packed RBCs. 4. An elevated PSA in light of prostate cancer status post radiation. 5. Based on the bone marrow biopsy, further recommendations will be followed. In the meantime, we will transfer to the rehab for ambulation and convalescence. Family agreed upon. Title I Teacher consult was obtained. Waiting for placement and waiting for the insurance approval. We will do the paperwork tomorrow. LEVEL OF DOCUMENTATION: 25 minutes. cc: Michele Mckay MD
[2018-11-19] MEDS: TYLENOL PO SCH ×3 (05:59→22:22)
[2018-11-19] MEDS: LOVENOX SUBQ SCH (05:59)
[2018-11-19] MEDS: FLOMAX PO SCH ×2 (08:07→22:21)
[2018-11-19] MEDS: CITRACAL + D PO SCH (08:07)
[2018-11-19] MEDS: CARDIZEM CD PO SCH ×2 (08:07→22:21)
[2018-11-19] MEDS: FERROUS SULFATE PO SCH (08:07)
[2018-11-19] MEDS: PERIDEX MT SCH ×2 (08:07→22:21)
[2018-11-19] MEDS: DUONEB (A & A) INH PRN (10:33)
[2018-11-19] MEDS: PROTONIX PO SCH (14:04)
[2018-11-19] MEDS: NS 1,000 ML IV SCH (14:04)
[2018-11-19] MEDS: OXY IR PO PRN (18:37)
--- NOTE | 2018-11-19 21:45 | PROGRESS NOTE ---
DATE: 11/19/2018 SUBJECTIVE: The patient is confused. Pain is better. Waiting for biopsy report as well as the paperwork to be completed for rehab placement. Did receive 2 units of packed RBCs. EXAM: Temperature is 98. Vitals are stable. Physical exam no change. LABS: CBC: White cell count 5.6, hematocrit 30, platelet 161,000. ASSESSMENT AND PLAN: 1. Right hip nail replacement. Stable. 2. Anemia due to blood loss. Two units of packed RBCs. 3. Follow up on biopsy and Furniture And Bedding Inspector reported paperwork was completed. He is going for rehab tomorrow and continue present treatment. LEVEL OF DOCUMENTATION: 25 minutes. cc: Michele Mckay MD
[2018-11-19] MEDS: ASPIRIN EC PO SCH (22:21)
[2018-11-19] MEDS: COLACE PO SCH (22:21)
[2018-11-19] MEDS: ZOCOR PO SCH (22:22)
[2018-11-20] MEDS: OXY IR PO PRN ×2 (02:39→09:04)
[2018-11-20] MEDS: TYLENOL PO SCH (05:12)
[2018-11-20] MEDS: LOVENOX SUBQ SCH (05:13)
[2018-11-20 08:07] VITALS: BP 131/59
--- NOTE | 2018-11-20 08:59 | DISCHARGE SUMMARY ---
ADMISSION DATE: 11/13/2018 DISCHARGE DATE: 11/20/2018 DISCHARGING DIAGNOSES: 1. Intractable right hip pain due to abnormal CT with metastatic disease and also positive bone scan. 2. Elevated PSA, suspicious metastatic prostate cancer. Biopsy is pending. SECONDARY DIAGNOSES: 1. Abnormal EKG with right bundle. 2. History of prostate cancer since 2003, status post radiation seeds. 3. Chronic obstructive pulmonary disease. 4. Deafness. 5. Hyperlipidemia. 6. Hypertension. 7. Paroxysmal supraventricular tachycardia. 8. Peripheral arterial disease, status post right endarterectomy. 9. Ongoing tobacco abuse. 10. Peripheral arterial disease in both legs. MARILYN was 0.5, under the care of Dr. Stuart. 11. Seborrheic keratosis lesion on the right face. CONSULTATION: Dr. Nails. PROCEDURES: 1. Intramedullary nailing of right hip with bone biopsy pending. 2. Transfusion of 2 units of packed RBCs. BRIEF HISTORY: Please see the H and P that was done on 11/13/2018. In brief, he is a 78-year-old white male with above problems, was admitted to the hospital with right hip pain and with abnormal CT and bone scan. The patient was seen by Dr. Perez. The patient was unable to do MRI of the hip. He also had a PET scan. He had a history of remote prostate cancer. PSA was going high, from 5.[address] finding and bone scan finding suspicious for metastatic disease. It is extremely difficult to do the biopsy of the bone under anesthesia with his comorbid conditions. It was felt that with intramedullary nailing along with bone marrow biopsy that can help stabilize the hip and also get the diagnosis. As a result, the patient was admitted, and Dr. Nails did those procedures. Postoperative course was complicated by some delirium, anemia requiring 2 units of packed RBCs. At the request of the family, he has been transferred to the rehab for convalescence. LABS: CBC: White cell count 5.6, hematocrit 30, platelets 161,000. Sodium 141, potassium 3.5, chloride 106, BUN is 15, creatinine 0.9, glucose 114. PSA is 8.91, slowly increasing. Pathological findings: Bone marrow biopsy was pending. DISCHARGE INSTRUCTIONS: 1. Cardizem 120 p.o. b.i.d. 2. Aspirin 81 mg daily. 3. Flomax 0.4 p.o. b.i.d. 4. Ventolin HFA as needed for COPD. 5. Simvastatin 20 daily. 6. Plavix 75 daily. 7. Calcium with vitamin D one tablet daily. 8. Xarelto 10 daily for the DVT prophylaxis and slowly change to the 2.5 mg daily for underlying PAD. 9. Colace 200 at bedtime. 10. Tylenol as needed for pain. 11. Ultracet 1 tablet p.o. q.6 p.r.n. for pain. 12. Follow up on the biopsy report. cc: MD Willie Frazier MD Sammy Becdach, MD
[2018-11-20] MEDS: CITRACAL + D PO SCH (09:03)
[2018-11-20] MEDS: FLOMAX PO SCH (09:03)
[2018-11-20] MEDS: PERIDEX MT SCH (09:03)
[2018-11-20] MEDS: FERROUS SULFATE PO SCH (09:04)
[2018-11-20] MEDS: CARDIZEM CD PO SCH (09:04)
[2018-11-20] MEDS: NS 1,000 ML IV SCH (09:07)
== END 2018-11-20 09:59 | DRG 481 ==
LOC: DIRADM 09:50 → 4N 12:10
PROVIDERS: ADMIT Internal Medicine; ATTEND Internal Medicine

== ENCOUNTER 2018-12-11 21:39 | Observation (INO) ==
[2018-12-11] MEDS ORDERED: CARDIZEM IV ONE (21:45)
[2018-12-11 21:56] LABS: BASO# 0.03 X1000 (0.0-0.2); BASO% 0.4 % (0.0-0.8); EOS# 0.16 X1000 (0.0-0.7); EOS% 2.2 % (0.0-10.0); HEMATOCRIT 29.3 % (42.0-52.0); HEMOGLOBIN 8.8 g/dL (14.0-18.0); IMM GRAN# 0.02 X1000 (0.0-0.04); IMM GRAN% 0.3 % (0.0-0.5); LYMPH# 2.28 X1000 (1.2-3.4); LYMPH% 30.8 % (20.5-51.1); MCH 28.2 PG (27-31); MCV 93.9 FL (81-99); MONO# 0.76 X1000 (0.11-0.59); MONO% 10.3 % (1.7-9.3); MPV 9.9 FL (7.4-10.4); NEUT# 4.15 X1000 (1.4-6.5); PLT 272 X1000 (130-400); RBC 3.12 XMIL (4.7-6.1); RDW 15.9 % (11.5-14.5)
--- NOTE | 2018-12-11 22:16 | PROVIDER DOCUMENTATION ---
This chart was entered by Roseann Cruz Scribe, acting as scribe for Migue Cali MD. HPI-Cardiac General - General Chief Complaint: Palpitations Stated Complaint: CHEST PAIN Time Seen by Provider: 12/11/18 21:45 Source: patient Allergies/Adverse Reactions: Patient Allergies Allergy/AdvReac Type Severity Reaction Status Date / Time No Known Allergies Allergy Verified 05/22/16 17:17 Home Medications: Home Medication List Medication Instructions Recorded Confirmed Last Taken Type Albuterol Sulfate Inhaler 2 puff INH BID PRN 05/28/15 11/13/18 11/12/18 08:00 History [Ventolin Hfa] Aspirin [Ecotrin] 81 mg PO QPM 05/28/15 11/13/18 11/12/18 20:00 History Diltiazem HCl [Cartia Xt] 1 cap PO BID 05/28/15 11/13/18 11/13/18 08:00 History Tamsulosin [Flomax] 0.4 mg PO BID 05/28/15 11/13/18 11/13/18 08:00 History Simvastatin 20 mg PO QHS 05/22/16 11/15/18 11/12/18 20:00 History Clopidogrel [Plavix] 75 mg PO QHS 11/13/18 11/13/18 11/12/18 20:00 History Meclizine HCl [Antivert] 25 mg PO BID 11/13/18 11/13/18 11/13/18 08:00 History Acetaminophen [Tylenol] 1,000 mg PO Q8H tab 11/20/18 Unknown Rx Calcium Citrate/Vitamin D 1 ea PO DAILY tab 11/20/18 Unknown Rx [Citracal + D] Docusate Sodium [Colace] 200 mg PO QHS cap 11/20/18 Unknown Rx Rivaroxaban [Xarelto] 10 mg PO DAILY #30 tab 11/20/18 Unknown Rx Tramadol/APAP [Ultracet 1 ea PO Q6H PRN PRN #30 tab 11/20/18 Unknown Rx 37.5MG/325Mg] - History of Present Illness-Cardiac Nature of Presenting Problem: Pt is 78/wm with history of COPD, atrial fibrillation,and SVT, currently taking Xarelto, who arrives by EMS with rapid heart rate over 170 which readily responded to IV Cardizem. Location: reports: substernal Quality of Pain: reports: pressure Severity in ED: moderate Onset/Duration: 1/2 hour ago Timing: still present Context/Activities at Onset: reports: none Modifying Factors: improves with: nothing Palpitation Quality: fast/pounding heart beat History of arrythmia: reports: SVT Recent use of:: reports: no stimulants Nitro Today/Relief: reports: no nitro taken today Aspirin Treatment Today: reports: no aspirin today Prior Chest Pain/Cardiac Workup: reports: no prior chest pain Associated Symptoms: reports: denies symptoms Similar Symptoms Previously?: Yes Recently Seen Here or By Another Healthcare Provider: No Review of Systems - Adult - REVIEW OF SYSTEMS - ADULT Constitutional: reports: no symptoms reported. denies: chills, fever Eyes: reports: no symptoms reported Ears, Nose, Mouth & Throat: reports: no symptoms reported Cardiovascular: reports: palpitations. denies: chest pain Respiratory: reports: shortness of breath Gastrointestinal: denies: nausea, vomiting Genitourinary: reports: no symptoms reported Musculoskeletal: reports: no symptoms reported Integumentary: reports: no symptoms reported Neurological: reports: no symptoms reported. denies: dizziness/vertigo, h eadache/migraines Psychiatric: reports: no symptoms reported Endocrine: reports: no symptoms reported Hematologic/Lymphatic: reports: no symptoms reported Allergic/Immunologic: reports: no symptoms reported All Other Systems: Reviewed and Negative Past History - Adult - PAST MEDICAL HISTORY-ADULT Review of Records: reports: Old Records Reviewed, Nursing Assessment Review, Medications Reviewed, Social history reviewed & non-contributory. Major Childhood Illnesses: reports: denies history Cardiovascular: reports: arrhythmia (SVT), HTN, hyperlipidemia Respiratory: reports: COPD Gastrointestinal: reports: denies history Obstetrical/Gynecological: reports: denies history Genitourinary: reports: prostate cancer Musculoskeletal: reports: intervertebral disc disease Neurological: reports: denies history Endocrine/Immune: reports: denies history Other Conditions: reports: denies history - PRIOR SURGERIES/PROCEDURES Surgical/Procedure History: reports: appendectomy, other (carotidectomy) - IMMUNIZATION STATUS Childhood Immunizations: See Nurse Assessment Flu Vaccine: See Nurse Assessment - FAMILY HISTORY Family History: reviewed, not pertinent - SOCIAL HISTORY Smoking: cigarettes, less than 1 pack/day Provider spent 3-5 mins advising pt. on dangers of tobacco.: Discussed manners to quit use, and f/u contacts for add'l counseling. Substance Use: none/never Alcohol Use Frequency: rarely Living Situation: family Physical Exam-General - PHYSICAL EXAM-ADULT Initial Vital Signs Reviewed: Yes - CONSTITUTIONAL General Appearance: appears well, alert, mild distress - EYES Eyes: PERRL/EOMI, pink conjunctivae - HEAD, EARS, NOSE, MOUTH & THROAT HENMT: moist mucous membranes - NECK Neck: non-tender, full range of motion, supple, normal inspection - RESPIRATORY Respiratory: lungs clear - CARDIOVASCULAR Cardiovascular: tachycardia (177) - GASTROINTESTINAL (ABDOMEN) Abdominal Exam: normal bowel sounds, non tender, soft - LYMPHATIC Lymphatic: no adenopathy - MUSCULOSKELETAL Back Exam: normal inspection Extremity: normal range of motion, non-tender, normal gait, normal inspection, other (2+ edema lower extremities bilaterally) - SKIN Integumentary: warm/dry, other (pale) - NEUROLOGIC Neurologic: grossly normal - PSYCHIATRIC Psych/Mental Status: normal mood/affect, normal thought content, normal thought process, oriented x 3 - HEART Score HEART Score: History: Slightly Suspicious HEART Score: ECG: Normal HEART Score: Age: > or = 65 Years HEART Score: Risk Factors for Atherosclerotic Disease: 1 or 2 Risk Factors HEART Score: Troponin: < or = Normal Limit Total HEART Score:: 3 Progress - PLAN OF CARE/RESULTS Progress/Plan/Lab Results: Vital Signs - 8 hr 12/11/18 21:40 12/11/18 21:41 12/11/18 23:26 Temperature 98.1 F Pulse Rate 116 H 177 H 104 H Respiratory Rate 23 24 21 Blood Pressure 123/56 114/66 145/88 O2 Sat by Pulse Oximetry 100 96 100 Laboratory Results - last 24 hr 12/11/18 12/11/18 12/11/18 21:50 21:50 21:50 WBC 7.40 RBC 3.12 L Hgb 8.8 L Hct 29.3 L MCV 93.9 MCH 28.2 MCHC 30.0 L RDW Std Deviation 15.9 H Plt Count 272 MPV 9.9 Immature Gran % (Auto) 0.3 Neut % (Auto) 56.0 Lymph % (Auto) 30.8 [place] % (Auto) 10.3 H Eos % (Auto) 2.2 Baso % (Auto) 0.4 Immature Gran # (Auto) 0.02 Neut # (Auto) 4.15 Lymph # (Auto) 2.28 [place] # (Auto) 0.76 H Eos # (Auto) 0.16 Baso # (Auto) 0.03 D-Dimer, Quantitative Sodium Potassium Chloride Carbon Dioxide Anion Gap BUN Creatinine Estimated GFR/1.73 m2 BUN/Creatinine Ratio Glucose Calculated Osmolality Calcium Total Bilirubin AST ALT Alkaline Phosphatase Creatine Kinase 30 Troponin T < 0.010 Total Protein Albumin Globulin Albumin/Globulin Ratio 12/11/18 12/11/18 21:50 21:50 WBC RBC Hgb Hct MCV MCH MCHC RDW Std Deviation Plt Count MPV Immature Gran % (Auto) Neut % (Auto) Lymph % (Auto) [place] % (Auto) Eos % (Auto) Baso % (Auto) Immature Gran # (Auto) Neut # (Auto) Lymph # (Auto) [place] # (Auto) Eos # (Auto) Baso # (Auto) D-Dimer, Quantitative 0.62 H Sodium 143 Potassium 4.3 Chloride 105 Carbon Dioxide 23 L Anion Gap 15 BUN 10 Creatinine 0.8 Estimated GFR/1.73 m2 > 60 BUN/Creatinine Ratio 13 Glucose 159 H Calculated Osmolality 287 Calcium 9.7 Total Bilirubin 0.30 AST 10 ALT 10 Alkaline Phosphatase 132 H Creatine Kinase Troponin T Total Protein 6.5 Albumin 4.4 Globulin 2.0 Albumin/Globulin Ratio 2.0 Orders Category Date Time Status Cardiac Monitoring DIRECTED Care 12/11/18 21:47 Active CHEST-PORTABLE [RAD] Stat Exams 12/11/18 22:02 Taken CTA [CT ANGIOGRM PULMONARY ARTERIES] [CT] Stat Exams 12/11/18 22:52 Taken CBC WITH ELECTRONIC DIFF [HEME] Stat Lab 12/11/18 21:50 Completed CK PROFILE [SP CHEM] Stat Lab 12/11/18 21:50 Completed CMP [COMPREHENSIVE METABOLIC PANEL] [CHEM] Stat Lab 12/11/18 21:50 Completed D-DIMER [COAG] Stat Lab 12/11/18 21:50 Completed TROPONIN T Stat Lab 12/11/18 21:50 Completed Diltiazem [Cardizem] Med 12/11/18 21:45 Discontinued 15 mg IV NOW ONE Metoprolol [Lopressor] Med 12/11/18 22:45 Discontinued 5 mg IV NOW ONE EKG [EKG] Stat Ther 12/11/18 21:47 Ordered Result Diagrams: 12/11/18 21:50 12/11/18 21:50 - EKG 1 Time of EKG reading by physician:: 21:45 EKG Read and Signed by:: Migue Cali EKG Interpretation (*Must complete 3 of following elements*): Abnormal (Sinus tachycardia, Low voltage QRS. RBBB. Abnormal ECG) Rate: 120 QRS: RBB VA Interval: normal ST Wave: normal - CT/MRI 1 CT Study: Thorax CT Results: emphysema, no PE - CONSULTS/PCP/HOSPITALIST Notification #1 *Consult/PCP/Hospitalist*: Dr. Chapa, hospitalist Time Discussed: 01:15 Consult Disposition: Admit Departure - Departure Date of Disposition Decision: 12/12/18 Time of Disposition Decision: :19 DIAGNOSIS: SVT (supraventricular tachycardia) COPD (chronic obstructive pulmonary disease) Qualifiers: COPD type: unspecified COPD Qualified Code(s): J44.9 - Chronic obstructive pulmonary disease, unspecified Disposition: ADMITTED INPATIENT 09 Certified Medical Emergency: Emergent Condition: Stable Referrals and Follow-Ups: None,PCP [NON-STAFF PROVIDER] - - Critical Care Note This patient required my direct & personal management of CC.: Yes Total Time (mins): 135 Critical Care Statement: This patient required my direct personal management to treat or rule out processes, the absence of which, could potentiallly result in sudden, clinically significant life or limb threatening deterioration. Attestation - Physician/ GHULAM Attestation Patient care was provided by Advanced Practice Provider:: No The physician spent face to face time with patient:: Yes Advanced Practice Provider documentation review:: Supervising physician onsite and consulted in the evaluation and care of this patient. The physician did have a face to face encounter with the patient. This chart was documented by the indicated scribe, (Roseann Cruz, Abbiibdandy) and accurately reflects the services I performed and decisions made by me, Migue Cali MD, as attested by the provider's signature.
[2018-12-11 22:33] LABS: AGAP 15; ALBUMIN 4.4 g/dL (3.5-5.0); ALKALINE PHOSPHATASE 132 U/L (32-122); BUN 10 mg/dL (8-22); CALCIUM 9.7 mg/dL (8.8-10.2); CHLORIDE 105 mmol/L (98-107); COSMO 287; CREATININE 0.8 mg/dL (0.7-1.2); ESTIMATED GFR > 60; GLUCOSE 159 mg/dL (70-104); GOT 10 U/L (10-34); GPT 10 U/L (10-44); POTASSIUM 4.3 mmol/L (3.5-5.1); SODIUM 143 mmol/L (136-145); TCO2 23 mmol/L (25-35); TOTAL PROTEIN 6.5 g/dL (6.3-8.3)
[2018-12-11] MEDS ORDERED: LOPRESSOR IV ONE (22:45)
[2018-12-12] MEDS ORDERED: ZOFRAN IV PRN (01:21)
[2018-12-12] MEDS ORDERED: LOPRESSOR IV PRN (01:26)
[2018-12-12] MEDS ORDERED: CARDIZEM CD PO SCH (01:30)
[2018-12-12] MEDS ORDERED: DUONEB (A & A) ONE (01:54)
[2018-12-12 03:42] VITALS: BP 126/99
--- NOTE | 2018-12-12 05:57 | EKG Report ---
Test Performed on : 12/11/2018 9:44:22 PM Test Reason : tachycardia Blood Pressure : / mmHG Vent. Rate : 120 BPM Atrial Rate : 120 BPM P-R Int : 164 ms QRS Dur : 118 ms QT Int : 316 ms P-R-T Axes : 023 150 034 degrees QTc Int : 446 ms Sinus tachycardia. Low voltage QRS Right bundle branch block Abnormal ECG When compared with ECG of 22-NOV-2017 03:19, premature ventricular complexes. are no longer present ST now depressed in Anterior leads Unconfirmed Result
[2018-12-12] MEDS ORDERED: DUONEB (A & A) INH SCH (07:30)
--- NOTE | 2018-12-12 07:30 | Diag Imaging Result Doc PS360 ---
EXAM: CHEST-PORTABLE 12/11/2018 HISTORY: sob TECHNIQUE: Erect AP portable at 2234 COMMENT: There is no evidence of acute cardiac or pulmonary disease. Considering differences in technique there has been no significant change since 11/17/2018. IMPRESSION: Stable chest. Electronically signed by Micheal English 12/12/2018 7:28 AM
--- NOTE | 2018-12-12 08:14 | Diag Imaging Result Doc PS360 ---
EXAM: CT ANGIOGRM PULMONARY ARTERIES 12/11/2018 HISTORY: sob,elevated d-dimer TECHNIQUE: This exam was performed using automated exposure control, adjustment of mA or kV according to patient size, and/or use of iterative reconstruction technique. COMMENT: 3-D MIPS were performed. There are no previous thoracic studies available for comparison. Where possible comparison is made with the abdominal study of 10/26/2018 and that of 08/17/2018. There are no filling defects in the pulmonary arteries. The aorta contains calcifications but is not distended and there is no evidence of dissection. There are dense calcifications in the left anterior descending artery. There is a cardiophrenic angle node on the left measuring over 11 mm which was also present at the time the previous study. There is a small pericardial effusion. There are some nonspecific aorticopulmonary window nodes one of which measures is much as 18 mm in long axis. The regional skeleton is intact. The visualized portion of the abdomen is stable in appearance. There are emphysematous changes. There is a pleural-based nodule in the posterior costophrenic sulcus of the left lower lobe which has not changed significantly since the previous study of 10/26/2018 or that of 08/17/2018. This measures almost 11 mm in diameter. Six-month follow-up is recommended with regard to this lesion. IMPRESSION: No evidence of pulmonary emboli. COPD. Left lower lobe pleural-based nodule as described. Electronically signed by Micheal English 12/12/2018 8:11 AM
--- NOTE | 2018-12-17 13:50 | DISCHARGE SUMMARY ---
ADMISSION DATE: 12/12/2018 DISCHARGE DATE: 12/12/2018 HISTORY: As we mentioned in previous H P note, patient has not been seen by me. Patient was admitted for atrial fibrillation with rapid ventricular response. At this time, this patient was in his room. He wanted to smoke so he was not allowed to. He became upset, and left the hospital AMA. cc: Jenaro Puente MD
--- NOTE | 2018-12-17 15:01 | HISTORY AND PHYSICAL ---
HISTORY OF PRESENT ILLNESS: This is a 78-year-old male with history of COPD, atrial fibrillation, SVT, who arrives to the emergency department with a heart rate of 170. The patient was treated in the emergency department with IV Cardizem, and his heart rate was stabilized, so I was called for admission by the ER doctor, Dr. Cali. The patient was admitted to the hospital. Apparently, he wanted to smoke outside the hospital, so he got upset and he decided to leave the hospital AGAINST MEDICAL ADVICE. I have not had the opportunity to see this patient personally. cc: Jenaro Puente MD
== END 2018-12-12 03:50 | disposition left against medical advice (07) ==
LOC: P.ED 21:39 → P.MEDSURG 21:39
PROVIDERS: ATTEND Internal Medicine

== ENCOUNTER 2019-02-10 14:31 | Inpatient (IN) ==
[2019-02-10] MEDS ORDERED: NS 1,000 ML IV ONE (15:25)
[2019-02-10 15:44] LABS: BASO# 0.03 X1000 (0.0-0.2); BASO% 0.6 % (0.0-0.8); EOS# 0.11 X1000 (0.0-0.7); EOS% 2.3 % (0.0-10.0); HEMATOCRIT 20.4 % (42.0-52.0); IMM GRAN# 0.01 X1000 (0.0-0.04); IMM GRAN% 0.2 % (0.0-0.5); LYMPH# 1.31 X1000 (1.2-3.4); LYMPH% 27.1 % (20.5-51.1); MCH 28.1 PG (27-31); MCHC 28.9 g/dL (33-37); MCV 97.1 FL (81-99); MONO# 0.44 X1000 (0.11-0.59); MONO% 9.1 % (1.7-9.3); MPV 9.9 FL (7.4-10.4); NEUT# 2.93 X1000 (1.4-6.5); NEUT% 60.7 % (42.2-75.2); PLT 299 X1000 (130-400); RDW 14.9 % (11.5-14.5); WBC 4.83 X1000 (4.8-10.8)
[2019-02-10 15:48] LABS: HEMOGLOBIN 5.9 g/dL (14.0-18.0)
[2019-02-10 15:50] LABS: ESTIMATED GFR > 60
[2019-02-10 15:58] LABS: AGAP 13; ALBUMIN 4.1 g/dL (3.5-5.0); ALKALINE PHOSPHATASE 111 U/L (32-122); BUN 13 mg/dL (8-22); CALCIUM 5.8 mg/dL (8.8-10.2); CHLORIDE 105 mmol/L (98-107); COSMO 279; CREATININE 0.7 mg/dL (0.7-1.2); GLUCOSE 124 mg/dL (70-104); GOT 10 U/L (10-34); GPT 6 U/L (10-44); POTASSIUM 3.3 mmol/L (3.5-5.1); SODIUM 139 mmol/L (136-145); TCO2 21 mmol/L (25-35)
[2019-02-10 16:17] LABS: OCCULT BLOOD 1 POSITIVE (NEGATIVE)
--- NOTE | 2019-02-10 16:20 | PROVIDER DOCUMENTATION ---
This chart was entered by Chloe Benitez Scribe, acting as scribe for Nikko Machado MD. HPI-General Adult - General Chief Complaint: Dizziness Stated Complaint: DIZZY Time Seen by Provider: 02/10/19 15:01 Source: patient, family Allergies/Adverse Reactions: Patient Allergies Allergy/AdvReac Type Severity Reaction Status Date / Time No Known Allergies Allergy Verified 02/10/19 14:40 Home Medications: Home Medication List Medication Instructions Recorded Confirmed Last Taken Type Albuterol Sulfate Inhaler 2 puff INH BID PRN 05/28/15 02/10/19 11/12/18 08:00 History [Ventolin Hfa] Aspirin [Ecotrin] 81 mg PO QPM 05/28/15 02/10/19 11/12/18 20:00 History Diltiazem HCl [Cartia Xt] 1 cap PO BID 05/28/15 02/10/19 11/13/18 08:00 History Tamsulosin [Flomax] 0.4 mg PO BID 05/28/15 02/10/19 11/13/18 08:00 History Simvastatin 20 mg PO QHS 05/22/16 02/10/19 11/12/18 20:00 History Acetaminophen [Tylenol] 1,000 mg PO Q8H tab 11/20/18 02/10/19 Unknown Rx Calcium Citrate/Vitamin D 1 ea PO DAILY tab 11/20/18 02/10/19 Unknown Rx [Citracal + D] - History of Present Illness -Gen Adult Nature of Presenting Problems: 78 yowm presents to the ed with c/o dizziness, nausea, GUTIERRES, tingling of face, fatigue, chronic, blurry vision, cough and BLE edema. pt on exam has improving of sx except dizziness and nausea. pt on exam is pale but sts has hx of chronic anemia. pt is otherwise nontoxic in appearance Location of Pain/Injury: reports: head (GUTIERRES), generalized (fatigue) Quality of Pain: reports: aching Severity: reports: mild Onset/Duration: reports: this morning (dizziness) Timing: reports: intermittent Context/Activities at Onset: reports: light activity Modifying Factors: worse with: exercise, other (HAND CULTIVATOR) Associated Symptoms: reports: dizziness, fatigue, headaches, malaise, nausea. denies: back/neck pain, chest pain, diaphoresis, diarrhea, fever/chills, heartburn, shortness of breath, vomiting Similar Symptoms Previously?: No Recently seen or treated by another doctor?: No Review of Systems - Adult - REVIEW OF SYSTEMS - ADULT Constitutional: reports: see HPI, fatique. denies: chills, fever Eyes: reports: see HPI, blurred vision (chronic) Ears, Nose, Mouth & Throat: reports: no symptoms reported Cardiovascular: reports: see HPI, edema. denies: chest pain, palpitations Respiratory: reports: no symptoms reported Gastrointestinal: reports: see HPI, nausea. denies: abdominal pain, diarrhea, vomiting Genitourinary: reports: no symptoms reported Musculoskeletal: denies: back pain, neck pain Integumentary: reports: no symptoms reported Neurological: reports: see HPI, dizziness/vertigo, headache/migraines, loss of balance, paresthesia (face). denies: ataxia, seizure, slurred speech, syncope, tremors Psychiatric: reports: no symptoms reported Endocrine: reports: no symptoms reported Hematologic/Lymphatic: reports: see HPI, low blood count Allergic/Immunologic: reports: no symptoms reported All Other Systems: Reviewed and Negative Past History - Adult - PAST MEDICAL HISTORY-ADULT Review of Records: reports: Old Records Reviewed, Nursing Assessment Review, Medications Reviewed, Social history reviewed & non-contributory. Major Childhood Illnesses: reports: denies history Cardiovascular: reports: arrhythmia (SVT), HTN, hyperlipidemia Respiratory: reports: COPD Gastrointestinal: reports: GI bleed, ulcer Genitourinary: reports: prostate cancer Musculoskeletal: reports: chronic pain, intervertebral disc disease Neurological: reports: denies history Psychiatric: reports: denies history Endocrine/Immune: reports: anemia Other Conditions: reports: denies history - PRIOR SURGERIES/PROCEDURES Surgical/Procedure History: reports: appendectomy, other (carotidectomy) - IMMUNIZATION STATUS Childhood Immunizations: See Nurse Assessment Flu Vaccine: See Nurse Assessment - FAMILY HISTORY Family History: reviewed, not pertinent - SOCIAL HISTORY Smoking: cigarettes, greater than 1 pack/day Provider spent 3-5 mins advising pt. on dangers of tobacco.: Discussed manners to quit use, and f/u contacts for add'l counseling. Substance Use: alcohol Alcohol Use Frequency: occasionally Number of drinks per typical drinking period:: 3-4 drinks Living Situation: family Physical Exam-General - PHYSICAL EXAM-ADULT Initial Vital Signs Reviewed: Yes - CONSTITUTIONAL General Appearance: alert, no apparent distress (pt sts sx have improved some but still present), obese - EYES Eyes: PERRL/EOMI, pale conjunctivae - HEAD, EARS, NOSE, MOUTH & THROAT HENMT: moist mucous membranes - NECK Neck: non-tender, full range of motion, normal inspection, other (dizziness is worse with HAND CULTIVATOR or neck rotation) - RESPIRATORY Respiratory: chest non-tender, no respiratory distress, no accessory muscle use, crackles (rt base) - CARDIOVASCULAR Cardiovascular: normal peripheral pulses, regular rate, rhythm - CHEST (BREASTS) Chest/Breast: deferred - GASTROINTESTINAL (ABDOMEN) Abdominal Exam: normal bowel sounds, non tender, soft, other (c/o nausea) - GENITOURINARY Male Genitalia: deferred Rectal Exam: normal exam, normal rectal tone, black stool Hemoccult Exam: heme positive stool - LYMPHATIC Lymphatic: no adenopathy - MUSCULOSKELETAL Back Exam: normal inspection, no CVA tenderness, no vertebral tenderness Extremity: normal range of motion, normal capillary refill, pelvis stable, swelling (chronic BLE edema) - SKIN Integumentary: normal turgor, warm/dry, pallor - NEUROLOGIC Neurologic: grossly normal - PSYCHIATRIC Psych/Mental Status: normal mood/affect, normal thought content, normal thought process, oriented x 3 Progress - PLAN OF CARE/RESULTS Progress/Plan/Lab Results: Vital Signs - 8 hr 02/10/19 14:37 Temperature 97.9 F Pulse Rate 92 H Respiratory Rate 20 Blood Pressure 122/69 O2 Sat by Pulse Oximetry 98 Orders Category Date Time Status CBC WITH ELECTRONIC DIFF [HEME] Stat Lab 02/10/19 14:41 Uncollected COMPREHENSIVE METABOLIC PANEL [CHEM] Stat Lab 02/10/19 14:41 Uncollected Generalized Adult Illness >60 Stat Oth 02/10/19 14:41 Ordered EKG [EKG] Stat Ther 02/10/19 14:41 Ordered Result Diagrams: 02/10/19 15:09 02/10/19 15:09 - REASSESSMENT Reassessment #1 Time Reassessed: 15:09 Status: unchanged - EKG 1 Time of EKG reading by physician:: 15:25 EKG Read and Signed by:: Nikko Machado EKG Interpretation (*Must complete 3 of following elements*): Abnormal Rate: 95 Rhythm: sinus rhythm with pac Lindsay: normal QRS: normal RI Interval: normal ST Wave: normal - XRAY 1 XRAY: Bilateral XRAY Study: Chest Impression: See EMR Report - CT/MRI 1 CT Study: Head Impression: See EMR Report - CONSULTS/PCP/HOSPITALIST Notification #1 *Consult/PCP/Hospitalist*: hospitalist dr vyas Time Discussed: 15:48 Reason/Comments: phone consult #2 Consult: dr galvan for dr doe group Time Discussed: 16:17 Consult Disposition: Admit Departure - Departure Date of Disposition Decision: 02/10/19 Time of Disposition Decision: 16:19 DIAGNOSIS: GI bleed Qualifiers: GI bleed type/associated pathology: gastric ulcer Qualified Code(s): K25.4 - Chronic or unspecified gastric ulcer with hemorrhage Anemia Qualifiers: Anemia type: other cause Other causes of anemia: acute posthemorrhagic Qualified Code(s): D62 - Acute posthemorrhagic anemia Disposition: ADMITTED INPATIENT 09 Certified Medical Emergency: Emergent Condition: Stable Referrals and Follow-Ups: Sean Doe MD [Primary Care Provider] - - Critical Care Note This patient required my direct & personal management of CC.: Yes Total Time (mins): 36 (HH 5.9) Critical Care Statement: This patient required my direct personal management to treat or rule out processes, the absence of which, could potentiallly result in sudden, clinically significant life or limb threatening deterioration. Attestation - Physician/ GHULAM Attestation Patient care was provided by Advanced Practice Provider:: No The physician spent face to face time with patient:: Yes Advanced Practice Provider documentation review:: Supervising physician onsite and consulted in the evaluation and care of this patient. The physician did have a face to face encounter with the patient. This chart was documented by the indicated scribe, (Chloe Benitez Scribe) and accurately reflects the services I performed and decisions made by me, Nikko Boone MD, as attested by the provider's signature.
--- NOTE | 2019-02-10 16:24 | Diag Imaging Result Doc PS360 ---
EXAM: CHEST-1 VIEW 02/10/2019 HISTORY: dizziness TECHNIQUE: Erect AP chest COMMENT: Considering differences in projection there has been no significant change since 12/11/2018. IMPRESSION: Stable chest. Electronically signed by Micheal English 02/10/2019 4:22 PM
[2019-02-10] MEDS ORDERED: CALCIUM GLUCONATE 2 GM in NS 100 ML IV ONE (16:26)
--- NOTE | 2019-02-10 16:27 | Diag Imaging Result Doc PS360 ---
EXAM: CT HEAD W/O CONTRAST - 02/10/2019 HISTORY: L side face numbness TECHNIQUE: CT head without contrast COMPARISON: None. FINDINGS: There are mild atrophic changes. There is no evidence of intracranial hemorrhage, mass effect, midline shift, or hydrocephalus. There is no evidence of infarct, although acute infarcts may not be immediately visible. There is no evidence of skull fracture. The right compartment sphenoid sinus is noted to be largely opacified. IMPRESSION: No visible acute intracranial abnormality. There is right sphenoid sinusitis noted. This exam was performed using automated exposure control, adjustment of mA or kV according to patient size, and/or use of iterative reconstruction technique. Electronically signed by Alejandro Terry 02/10/2019 4:24 PM
[2019-02-10] MEDS ORDERED: ZOFRAN IV PRN (16:28)
--- NOTE | 2019-02-10 16:36 | EKG Report ---
Test Performed on : 02/10/2019 3:01:24 PM Test Reason : dizziness Blood Pressure : / mmHG Vent. Rate : 095 BPM Atrial Rate : 095 BPM P-R Int : 162 ms QRS Dur : 134 ms QT Int : 410 ms P-R-T Axes : 038 101 060 degrees QTc Int : 515 ms Sinus rhythm. with premature atrial complexes. Right bundle branch block Abnormal ECG When compared with ECG of 11-DEC-2018 21:44, premature atrial complexes. are now present Unconfirmed Result
[2019-02-10] MEDS ORDERED: NS 500 ML ONE (17:23)
[2019-02-10] MEDS ORDERED: LABETALOL IV PRN (19:24)
--- NOTE | 2019-02-10 20:19 | HISTORY AND PHYSICAL ---
HISTORY OF PRESENT ILLNESS: Mr. Royal is a 78-year-old white gentleman, patient of Dr. Hodge. He came to [facility] room for severe dizziness. He was found to be severely anemic. He also has been passing black stools for the last 1 month. In the last week of December, he had EGD performed by Dr. Scott and he was told that he had about 4 to 5 stomach ulcers. He refused for colonoscopy at that time. Mr. 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 Had a mao placed in his right hip by Dr. Nails. He also had appendectomy performed and had right carotid endarterectomy. He is a smoker of about a pack of cigarettes per day. We discussed with him about smoking cessation. He does not drink anymore. ALLERGIES: He is not allergic to any medications. REVIEW OF SYSTEMS: He is extremely weak and has been having dizziness. It started this morning and he almost fell. Other details are noncontributory. MEDICATIONS: Include: 1. Cartia for hypertension and paroxysmal atrial tachycardia. 2. Simvastatin for hyperlipidemia. 3. He is also taking tamsulosin. 4. He was taking Prilosec 20 mg daily at home. PHYSICAL EXAMINATION: GENERAL: Patient is alert. VITAL SIGNS: At present, temperature normal, pulse 101 per minute, respiratory rate 16 per minute, blood pressure 148/56. HEAD: Normocephalic. EYES: PERRLA. Fundus examination not done. NECK: Supple. JVP normal. ENT: Examination unremarkable. There is no evidence of lymphadenopathy, thyroid enlargement. EXTREMITIES: There is some pedal edema bilaterally. No calf tenderness. SKIN: There is presence of anemia with pallor of skin and mucous membranes. No evidence of cyanosis or clubbing noted. BREASTS: Mild gynecomastia. CHEST: Normal inspection. Lungs clear on auscultation. HEART: PMI in the 6th left intercostal space, just inside the midclavicular line. Heart sounds normal. No murmur, gallop or rub noted. ABDOMEN: Nondistended. Hernial orifices normal. No guarding, rigidity, free fluid, masses, or organomegaly. Bowel sounds normal. RECTAL: Exam at the present time deferred. He has black stools. We are going to check stools for blood. TOOTH CUTTER SPUR: Higher functions normal. Cranial nerves normal. Motor and sensory system examination unremarkable. Deep tendon reflexes normal. Plantars downgoing. Skull and spine examination normal for age. No cerebellar signs or signs of meningeal irritation. Locomotor exam and skin exam unremarkable. LAB DATA: Reveals a hemoglobin 5.9, hematocrit 20.4. His calcium was 5.8. Liver functions are normal except for low total proteins. CT scan of the brain did reveal some mild atrophic changes. However, there were no residual intracranial abnormalities noted. His potassium is 3.3. We have transfused 1 unit and we will transfuse another unit tonight. Will have a GI consult with Dr. Scott. cc: Shamir Forte MD
[2019-02-10] MEDS: PROTONIX 80 MG in NS 80 ML IV SCH (20:21)
[2019-02-11] MEDS: PROTONIX 80 MG in NS 80 ML IV SCH ×2 (05:47→16:02)
[2019-02-11 07:04] LABS: BASO# 0.03 X1000 (0.0-0.2); BASO% 0.6 % (0.0-0.8); EOS# 0.11 X1000 (0.0-0.7); EOS% 2.1 % (0.0-10.0); HEMATOCRIT 26.5 % (42.0-52.0); LYMPH# 1.37 X1000 (1.2-3.4); LYMPH% 26.1 % (20.5-51.1); MCH 28.1 PG (27-31); MCHC 30.2 g/dL (33-37); MONO# 0.46 X1000 (0.11-0.59); MONO% 8.8 % (1.7-9.3); MPV 10.1 FL (7.4-10.4); NEUT# 3.27 X1000 (1.4-6.5); NEUT% 62.4 % (42.2-75.2); PLT 289 X1000 (130-400); RBC 2.85 XMIL (4.7-6.1); RDW 15.9 % (11.5-14.5); WBC 5.24 X1000 (4.8-10.8)
[2019-02-11 07:22] LABS: AGAP 13; BUN 10 mg/dL (8-22); CHLORIDE 106 mmol/L (98-107); COSMO 279; CREATININE 0.7 mg/dL (0.7-1.2); ESTIMATED GFR > 60; GLUCOSE 114 mg/dL (70-104); POTASSIUM 3.9 mmol/L (3.5-5.1); SODIUM 140 mmol/L (136-145); TCO2 21 mmol/L (25-35)
[2019-02-11 07:23] LABS: CALCIUM 5.9 mg/dL (8.8-10.2)
[2019-02-11] MEDS ORDERED: CALCIUM GLUCONATE IV PUSH ONE (07:32)
[2019-02-11] MEDS: SYMBICORT 160/4.5 MICROGM INHALER INH SCH ×2 (10:21→19:54)
--- NOTE | 2019-02-11 10:58 | PROGRESS NOTE ---
DATE: 02/11/2019 A 78-year-old, white gentleman admitted with dizziness. Patient had melenic stools for a month. Patient found to be severely anemic with hemoglobin around 5.9. The patient had an EGD done recently and told to have multiple stomach ulcers. The patient declined colonoscopy. Patient seems to be noncompliant. The patient was feeling weak. The patient is very vague and poor historian. The patient denied any typical chest pain. Complaining of cough and chest congestion. Some wheezing. No dysuria or hematuria. Mild epigastric discomfort. No dysphagia or odynophagia. No heat or cold intolerance. Admission history and physical noted. PAST MEDICAL HISTORY: Significant for peptic ulcer disease, BPH, hyperlipidemia, hypertension, paroxysmal atrial fibrillation, history of prostate cancer with metastasis. The patient had a surgery done on his right hip. PHYSICAL EXAMINATION: Vital Signs: Blood pressure 123/80, pulse 91, respirations 16, temperature 97.3 degrees. Skin: Senile turgor. Head: Atraumatic, normocephalic. Pale conjunctivae. Anicteric sclerae. Extraocular muscle movement normal. Fundus cannot be penetrated. Good oral hygiene. No tonsillopharyngeal congestion or exudate. Ears and nose benign. Neck: Supple. No JVD. Lungs: Bibasilar crepitations. Heart: S1 and S2 heard. Abdomen: Soft. Mild epigastric tenderness. No guarding or rigidity. Extremities: No cyanosis or clubbing. No acute DVT. PAPER CARRIER: Alert, awake. Able to move all 4 limbs. CONSIDERATION: 1. Patient admitted with significant anemia, most likely due to chronic blood loss. 2. The patient had history of peptic ulcer disease. 3. History of prostate cancer with metastasis. 4. Benign prostatic hypertrophy. 5. Hypertension. 6. Hyperlipidemia. 7. Chronic tobacco abuse. LABORATORY DATA: Done today, hemoglobin was 8, hematocrit 26.5. Admission hemoglobin was 5.9. Patient received 2 units of packed RBC. The patient did have hypokalemia on admission. Repeat potassium 3.9. The patient does have hypocalcemia. The patient is on IV Protonix. We gave him 1 ampule of calcium gluconate. Continue rest of the treatment. Close observation. We are waiting for GI evaluation. Encouraged smoking cessation. His chest x-ray was stable. cc: MD Shamir Negrete MD
--- NOTE | 2019-02-11 16:38 | GASTROENTEROLOGY CONSULTATION ---
DATE: 02/11/2019 REASON FOR CONSULTATION: GI bleed. HISTORY OF PRESENT ILLNESS: Mr. Supa Royal is a 78-year-old gentleman with a past medical history of hypertension, hyperlipidemia, SVT, COPD, metastatic prostate cancer, peripheral arterial disease, and recent diagnosis of bleeding gastric ulcers, who presents with 2 hours of dizziness, fatigue, and persistent melenic stools for the last 3 months. He says that he has been taking aspirin 81 mg daily. Previously he was on Plavix, which was stopped. He has been getting iron infusions with Dr. Perez. He says that he has been having black stools daily for the last 3 months. He does not take any NSAIDs. He denies any gross hematochezia, nausea, vomiting, abdominal pain, shortness of breath, chest pain, diarrhea, or constipation. He had an EGD with Dr. Scott on January 13 that revealed multiple gastric ulcers. Apparently, Dr. Scott said that 1 was bleeding and it was treated at that time. The patient has had a remote colonoscopy in the past; however, not interested in pursuing repeat colonoscopy at this time. REVIEW OF SYSTEMS: As per HPI, otherwise 12 point review of systems is negative. PAST MEDICAL HISTORY: As per HPI. PAST SURGICAL HISTORY: He had a mao placed in his right hip. He had a right CEA, appendectomy. FAMILY HISTORY: No family history of GI malignancies. SOCIAL HISTORY: One pack per day smoker. No alcohol or drug use. MEDICATIONS: Cartia, simvastatin, meclizine, Flomax, omeprazole 20 mg daily. ALLERGIES: No known drug allergies. PHYSICAL EXAMINATION: Vital Signs: Temperature 98.4, heart rate of 90, respiratory rate 16, blood pressure 152/82, O2 saturation 100% on 2 L nasal cannula. General: The patient is awake, alert, oriented, no acute distress. HEENT: Sclerae anicteric. Moist membranes. Extraocular motor intact. Neck: Supple. No JVD or lymphadenopathy. Cardiac: Regular rate and rhythm. No murmurs, rubs, gallops. Lungs: Clear to auscultation bilaterally. No wheezing. Abdomen: Soft, nontender, nondistended. Normoactive bowel sounds. No rebound or guarding. Extremities: No clubbing, cyanosis, or edema. Neurologic: Nonfocal. LABS: White count of 5.24, hemoglobin 8.0 from 5.9 on admission after receiving 2 units of packed red blood cells platelets 289,000. Chemistry: Sodium 140, potassium 3.9, chloride 106, bicarb 21, BUN of 10, creatinine 0.7, glucose of 114, calcium of 5.9. LFTs were within normal limits. IMAGING: Chest x-ray yesterday shows stable chest. Head CT, no visible acute intracranial abnormality. ASSESSMENT AND PLAN: Mr. Supa Royal is a 78-year-old gentleman with a past medical history of peripheral arterial disease on aspirin, COPD, hypertension, metastatic prostate cancer, SVT, who presents with symptomatic anemia in the setting of melenic stools that have persisted over the last several months. He currently is on omeprazole once daily at home. We are starting him on Protonix IV b.i.d. His hemoglobin responded well to transfusion. He is hemodynamically stable. Currently n.p.o. We will start him on a clear liquid diet and plan for diagnostic EGD tomorrow. Continue to trend his hemoglobin and hematocrit daily. Transfuse as needed to maintain a hemoglobin between 7 and 8. Hold aspirin or any other blood thinners. Can give SCDs or WILLIE hoses to prevent DVT. We will follow with you. Please call with any questions or concerns. Make him n.p.o. after midnight. Thank you for this consult. # Melena # Acute on chronic iron deficiency anemia # History of bleeding gastric ulcers # COPD # Prostate cancer # PAD cc: Shamir Forte MD [facility]
[2019-02-11] MEDS: PROTONIX IV SCH (17:02)
[2019-02-12] MEDS: PROTONIX IV SCH ×2 (05:12→18:11)
[2019-02-12 07:20] LABS: HEMATOCRIT 28.8 % (42.0-52.0); HEMOGLOBIN 8.6 g/dL (14.0-18.0); MCHC 29.9 g/dL (33-37); MPV 10.5 FL (7.4-10.4); RBC 2.97 XMIL (4.7-6.1); RDW 16.3 % (11.5-14.5); WBC 5.58 X1000 (4.8-10.8)
[2019-02-12 07:38] LABS: AGAP 16; ALB/GLOB RATIO 1.7; ALKALINE PHOSPHATASE 129 U/L (32-122); BUN 6 mg/dL (8-22); CHLORIDE 106 mmol/L (98-107); COSMO 282; CREATININE 0.8 mg/dL (0.7-1.2); ESTIMATED GFR > 60; GLUCOSE 115 mg/dL (70-104); GOT 13 U/L (10-34); GPT 6 U/L (10-44); POTASSIUM 3.9 mmol/L (3.5-5.1); SODIUM 142 mmol/L (136-145); TCO2 20 mmol/L (25-35); TOTAL BILIRUBIN 0.65 mg/dL (0.20-1.00); TOTAL PROTEIN 6.4 g/dL (6.3-8.3)
[2019-02-12 07:43] LABS: CALCIUM 6.2 mg/dL (8.8-10.2)
[2019-02-12] MEDS: SYMBICORT 160/4.5 MICROGM INHALER INH SCH ×2 (07:57→19:30)
[2019-02-12] MEDS ORDERED: CALCIUM GLUCONATE 2 GM in NS 50 ML IV ONE (08:09)
[2019-02-12] MEDS: DILAUDID IV PRN ×3 (08:55→22:02)
[2019-02-12] MEDS ORDERED: NS 500 ML IV ONE (10:00)
[2019-02-12] MEDS ORDERED: SODIUM CHLORIDE 0.9% 10 ML ONE (13:07)
--- NOTE | 2019-02-12 17:20 | PROGRESS NOTE ---
DATE: 02/12/2019 SUBJECTIVE: Interval history was reviewed. Patient is well known to my practice and admitted on Friday for upper GI bleeding. Appreciated GI consult. He is asking pain medicine for the back pain. Scheduled for EGD. The patient did receive 2 units of packed RBC passing black melanotic stools. PAST MEDICAL HISTORY: Reviewed. PAST SURGICAL HISTORY: Reviewed. MEDICINES: Reviewed. ALLERGIES: Not known. PHYSICAL EXAMINATION: Vital Signs: Temperature is 98 degrees, pulse 84, vitals are stable. Slight pallor noted. Neck: Supple. Chest: Clear. Heart: Sounds are regular. Belly is soft. No signs of peritonitis. No obvious deficits. INVESTIGATIONS: White cell count 5.5, hematocrit 28, platelet 275,000. SMA 7 is normal. BUN is only 6, creatinine 0.8, calcium 6.2. Occult blood is positive. ASSESSMENT AND PLAN: 1. Anemia with heme-positive stools. Waiting for EGD and colonoscopy. 2. Transfuse a unit of packed RBC. Maintain hematocrit 30. 3. Daily CBC. 4. Hydromorphone for p.r.n. pain. 5. Metastatic prostate cancer under Dr. Perez. 6. Hypocalcemia, calcium gluconate and will follow up on GI workup. 7. Continue to hold on his home medications because of ongoing gastrointestinal bleeding, which includes Cardizem and aspirin. LEVEL OF DOCUMENTATION: 25 minutes. cc: MD Shamir Frazier MD
--- NOTE | 2019-02-12 21:10 | PROVIDER PROGRESS NOTE ---
Progress Note S: No acute overnight events. His last melenic stool was yesterday. No BM today. His hgb is 8.6 from 8.0 without transfusion. He is receiving blood now. no N/V, abdominal pain, dizziness, CP, or SOB. O: Last Vital Signs Temp 98.3 F 02/12/19 19:45 Pulse 105 H 02/12/19 19:45 Resp 16 02/12/19 19:31 BP 124/53 02/12/19 19:45 Pulse Ox 88 L 02/12/19 19:45 Height 6 ft Weight 200 lb GEN: awake, alert, NAD HEENT: anicteric, MMM NECK: supple, no JVD PULM: CTAB, no wheezing ABD: soft NT/ND, NABS EXT: no cce NEURO: nonfocal LABS: 02/12/19 02/12/19 06:15 06:29 WBC 5.58 Hgb 8.6 L Plt Count 275 Sodium 142 Potassium 3.9 Chloride 106 Carbon Dioxide 20 L Anion Gap 16 BUN 6 L Creatinine 0.8 Glucose 115 H Calcium 6.2 L* Total Bilirubin 0.65 AST 13 ALT 6 L Alkaline Phosphatase 129 H Total Protein 6.4 Albumin 4.0 ASSESSMENT AND PLAN: Mr. Supa Royal is a 78-year-old gentleman with a past medical history of peripheral arterial disease on aspirin, COPD, hypertension, metastatic prostate cancer, SVT, and recent h/o bleeding gastric ulcers who presented with persistent melenic stools consistent with UGIB. VSS. Hgb at goal. No melenic stools today. Will plan for diagnostic EGD tomorrow in early AM. NPO after MN. Clear liquids for now. # GI Bleed: cont PPI IV BID, trending H/H, transfuse prn for goal hgb 7-8; holding blood thinners # Anemia: as above # H/o PUD: as above Will follow with you. Please call with questions.
[2019-02-13] MEDS: PROTONIX IV SCH ×2 (05:41→17:17)
[2019-02-13] MEDS: DILAUDID IV PRN ×3 (05:43→19:55)
[2019-02-13] MEDS ORDERED: DIPRIVAN 1% ONE ×2 (06:36→06:42)
[2019-02-13] MEDS ORDERED: XYLOCAINE-MPF 2% ONE (06:56)
[2019-02-13 07:06] LABS: BASO# 0.03 X1000 (0.0-0.2); BASO% 0.5 % (0.0-0.8); EOS# 0.08 X1000 (0.0-0.7); EOS% 1.4 % (0.0-10.0); HEMATOCRIT 29.5 % (42.0-52.0); HEMOGLOBIN 8.9 g/dL (14.0-18.0); LYMPH# 1.25 X1000 (1.2-3.4); LYMPH% 21.7 % (20.5-51.1); MCHC 30.2 g/dL (33-37); MCV 92.8 FL (81-99); MONO# 0.63 X1000 (0.11-0.59); MONO% 10.9 % (1.7-9.3); MPV 9.9 FL (7.4-10.4); NEUT# 3.77 X1000 (1.4-6.5); NEUT% 65.5 % (42.2-75.2); PLT 269 X1000 (130-400); RBC 3.18 XMIL (4.7-6.1); RDW 15.4 % (11.5-14.5); WBC 5.76 X1000 (4.8-10.8)
[2019-02-13 07:45] LABS: AGAP 14; BUN 6 mg/dL (8-22); CHLORIDE 103 mmol/L (98-107); COSMO 273; CREATININE 0.8 mg/dL (0.7-1.2); ESTIMATED GFR > 60; GLUCOSE 123 mg/dL (70-104); POTASSIUM 3.4 mmol/L (3.5-5.1); SODIUM 137 mmol/L (136-145); TCO2 20 mmol/L (25-35)
[2019-02-13 07:57] LABS: CALCIUM 5.9 mg/dL (8.8-10.2)
[2019-02-13] MEDS ORDERED: CALCIUM GLUCONATE 1 GM in NS 50 ML IV ONE (08:03)
--- NOTE | 2019-02-13 10:42 | PROGRESS NOTE ---
DATE: 02/13/2019 The patient is a 78-year-old white man with history of GI bleeding. Dr. Nair performed EGD this morning and apparently no active bleeding was found. Colonoscopy was recommended, but he refused earlier today to have it, but now he is reconsidering and agrees to proceed. This will most likely need to be done on Friday. He will require colon prep prior to the procedure. His GI bleeding has resulted in his receiving 4 units of blood recently. History is significant for SVT, COPD, bone cancer with metastases, prostate cancer. He had been taking aspirin recently and Plavix in the past. He had an EGD in December by Dr. Scott which revealed multiple ulcers. There is no history of colonoscopy in the past 15 years. He has devices on his leg to prevent DVT. PLAN: Continue clear liquids p.o. and plan for colonoscopy on Friday. cc: MD Shamir Pinon MD
[2019-02-13] MEDS: SYMBICORT 160/4.5 MICROGM INHALER INH SCH ×2 (15:06→19:50)
[2019-02-13] MEDS: SODIUM CHLORIDE 0.9% INJ SCH (17:17)
[2019-02-14] MEDS: SODIUM CHLORIDE 0.9% INJ SCH ×3 (06:15→17:19)
[2019-02-14] MEDS: PROTONIX IV SCH ×2 (06:18→17:19)
[2019-02-14 07:12] LABS: BASO# 0.05 X1000 (0.0-0.2); BASO% 1.3 % (0.0-0.8); EOS# 0.07 X1000 (0.0-0.7); EOS% 1.8 % (0.0-10.0); HEMATOCRIT 29.5 % (42.0-52.0); HEMOGLOBIN 9.1 g/dL (14.0-18.0); LYMPH# 0.82 X1000 (1.2-3.4); LYMPH% 21.2 % (20.5-51.1); MCH 28.2 PG (27-31); MCHC 30.8 g/dL (33-37); MCV 91.3 FL (81-99); MONO# 0.55 X1000 (0.11-0.59); MONO% 14.2 % (1.7-9.3); MPV 10.2 FL (7.4-10.4); NEUT# 2.37 X1000 (1.4-6.5); NEUT% 61.5 % (42.2-75.2); PLT 242 X1000 (130-400); RBC 3.23 XMIL (4.7-6.1); RDW 15.2 % (11.5-14.5); WBC 3.86 X1000 (4.8-10.8)
[2019-02-14 07:14] LABS: AGAP 14; BUN 6 mg/dL (8-22); CHLORIDE 101 mmol/L (98-107); COSMO 271; CREATININE 0.7 mg/dL (0.7-1.2); ESTIMATED GFR > 60; GLUCOSE 119 mg/dL (70-104); POTASSIUM 3.2 mmol/L (3.5-5.1); SODIUM 136 mmol/L (136-145); TCO2 21 mmol/L (25-35)
[2019-02-14 07:24] LABS: CALCIUM 5.9 mg/dL (8.8-10.2)
[2019-02-14] MEDS ORDERED: CALCIUM GLUCONATE 1 GM in NS 50 ML IV ONE (07:45)
[2019-02-14] MEDS: SYMBICORT 160/4.5 MICROGM INHALER INH SCH ×2 (08:04→19:23)
[2019-02-14] MEDS: DILAUDID IV PRN (10:00)
--- NOTE | 2019-02-14 11:03 | PROGRESS NOTE ---
DATE: 02/14/2019 VITAL SIGNS: Stable with temperature 98.5 degrees, heart rate 95, respirations 18, blood pressure 138/74, O2 saturation on nasal oxygen 98%. LABORATORY DATA: Hemoglobin 9.1, hematocrit 29.5 (same as yesterday), white blood count 3800. Sodium 136, potassium 3.2, BUN 6, creatinine 0.7, glucose 119, calcium 5.9. PLAN: He was given 1 amp of calcium gluconate this morning. He will be given some p.o. potassium. Colonoscopy is planned for tomorrow to find a source of GI bleeding. Upper GI showed no active bleeding. cc: MD Shamir Pinon MD
[2019-02-14] MEDS: KLOR-CON PO SCH ×2 (12:26→17:19)
[2019-02-14] MEDS ORDERED: GOLYTELY PO ONE (16:55)
[2019-02-14] MEDS: VENTOLIN HFA INH PRN (19:24)
--- NOTE | 2019-02-15 00:04 | PROVIDER PROGRESS NOTE ---
Progress Note GI Progress Note 02/14/2019 S: Patient had normal EGD yesterday. No acute overnight events. No N/V, abdominal pain, rectal bleeding, or melena. He has non-productive cough. O: Last Vital Signs Temp 98.1 F 02/14/19 23:16 Pulse 81 02/14/19 23:16 Resp 16 02/14/19 23:16 BP 123/54 02/14/19 23:16 Pulse Ox 95 02/14/19 23:16 Height 6 ft Weight 200 lb GEN: awake, alert, NAD HEENT: anicteric, MMM NECK: supple, no JVD PULM: CTAB, no wheezing ABD: soft NT/ND, NABS EXT: no cce NEURO: nonfocal LABS: 02/14/19 02/14/19 06:34 06:34 WBC 3.86 L Hgb 9.1 L Plt Count 242 Sodium 136 Potassium 3.2 L Chloride 101 Carbon Dioxide 21 L Anion Gap 14 BUN 6 L Creatinine 0.7 Glucose 119 H Calcium 5.9 L* EGD 02/13 normal ASSESSMENT AND PLAN: Mr. Supa Royal is a 78-year-old gentleman with a past medical history of peripheral arterial disease on aspirin, COPD, hypertension, metastatic prostate cancer, SVT, and recent h/o bleeding gastric ulcers who presented with persistent melenic stools consistent with UGIB. VSS. Hgb at goal. No melenic stools today. EGD yesterday normal. Will prep for diagnostic colonoscopy with Dr. Clark on 02/15 # GI Bleed: clear liquids, prep with 4L golytely, trending H/H, transfuse prn for goal hgb 7-8; holding blood thinners; colonoscopy on Friday with Dr. Clark # Anemia: as above # H/o PUD: resolved Dr. Clark to take over care on 02/15
[2019-02-15] MEDS: SODIUM CHLORIDE 0.9% INJ SCH ×2 (06:23→17:12)
[2019-02-15] MEDS: PROTONIX IV SCH ×2 (06:23→17:12)
[2019-02-15 07:01] LABS: BASO# 0.04 X1000 (0.0-0.2); BASO% 1.2 % (0.0-0.8); EOS# 0.11 X1000 (0.0-0.7); EOS% 3.4 % (0.0-10.0); HEMATOCRIT 30.3 % (42.0-52.0); HEMOGLOBIN 9.1 g/dL (14.0-18.0); LYMPH# 0.86 X1000 (1.2-3.4); LYMPH% 26.6 % (20.5-51.1); MCH 27.4 PG (27-31); MCV 91.3 FL (81-99); MONO# 0.51 X1000 (0.11-0.59); MONO% 15.8 % (1.7-9.3); MPV 10.1 FL (7.4-10.4); NEUT# 1.71 X1000 (1.4-6.5); PLT 244 X1000 (130-400); RBC 3.32 XMIL (4.7-6.1); WBC 3.23 X1000 (4.8-10.8)
[2019-02-15 07:41] LABS: AGAP 15; BUN 6 mg/dL (8-22); CHLORIDE 102 mmol/L (98-107); COSMO 276; CREATININE 0.7 mg/dL (0.7-1.2); ESTIMATED GFR > 60; GLUCOSE 114 mg/dL (70-104); POTASSIUM 3.4 mmol/L (3.5-5.1); SODIUM 139 mmol/L (136-145); TCO2 22 mmol/L (25-35)
[2019-02-15 07:42] LABS: CALCIUM 6.1 mg/dL (8.8-10.2)
[2019-02-15] MEDS ORDERED: PNEUMOVAX 23 IM ONE (08:00)
[2019-02-15] MEDS: SYMBICORT 160/4.5 MICROGM INHALER INH SCH ×2 (08:22→20:45)
[2019-02-15] MEDS: VENTOLIN HFA INH PRN ×2 (08:22→20:46)
[2019-02-15] MEDS ORDERED: CALCIUM GLUCONATE 2 GM in NS 50 ML IV ONE (08:28)
[2019-02-15] MEDS: KLOR-CON PO SCH ×3 (09:26→17:11)
[2019-02-15] MEDS ORDERED: NS 500 ML ONE (09:40)
[2019-02-15] MEDS: POTASSIUM CHLORIDE 20 MEQ/SWI 20 MEQ/100 ML IVPB IV SCH ×2 (11:47→15:45)
--- NOTE | 2019-02-15 18:29 | GASTROENTEROLOGY PROGRESS NOTE ---
DATE: 02/15/2019 SUBJECTIVE: Patient was sitting up in a chair at the time of my visit. He was seen by Dr. Nair over the weekend for anemia, possible gastrointestinal bleed. Patient has a history of bleeding gastric ulcers in the past. An EGD was done on 02/13/2019 that was normal with no evidence of active upper GI bleeding. He was prepped and scheduled for a colonoscopy today by Dr. Scott. When I saw the patient I asked if he was cleaned out for his colonoscopy. He stated that he thought so. I did notice 2 empty cracker packs laying on his bedside table. The patient states he had just eaten the crackers before I came in. He states he was hungry and he has not eaten in several days. Unfortunately, since patient has recently eaten, we will not be able to proceed with colonoscopy today. We will schedule the colonoscopy for February the . OBJECTIVE: Vital Signs: Temperature 97.5 degrees, pulse 94, respirations 16, blood pressure 155/83. General: Patient was awake and alert, in no acute distress. He was sitting up in a chair. LABORATORY: Hematology: WBC 3.23, hemoglobin 9.1, hematocrit 30.3, MCV 91.3, platelets 244,000. Chemistry: Sodium 139, potassium 3.4, chloride 102, CO2 of 22, BUN 6, creatinine 0.7, glucose 114, calcium 6.1. ASSESSMENT AND PLAN: Gastrointestinal bleed with history of bleeding gastric ulcers. His EGD of 02/13/2019 was normal. Will plan to proceed with colonoscopy. It had to be postponed today since he had recently eating crackers. We will schedule his colonoscopy for Friday. He will need to finish out his GoLYTELY colon prep. Further plans will be made according to colonoscopy findings. I have discussed this case with Dr. Scott. Dictated by YURIDIA Fonseca for Serge Scott MD cc: YURIDIA Kolb MD Amit V. Vora, MD
--- NOTE | 2019-02-15 18:33 | PROGRESS NOTE ---
DATE: 02/15/2019 SUBJECTIVE: The patient is anxious to go home. Did receive 3 units of packed RBCs. The patient has EGD was negative. Pain is better. REVIEW OF SYSTEMS: None reported. PHYSICAL EXAM: Temperature is 97.5 degrees, pulse 94, blood pressure 150/83, 99% on room air.HEENT: Slightly pale. Neck: Supple. Chest: Clear. Heart: Sounds are regular. Belly: Soft, nontender. INVESTIGATIONS: CBC. White cell count 3.2, hematocrit 30, platelets 244,000. Sodium 139, potassium 3.4, chloride 102, BUN 6, creatinine 0.7, calcium 6.1. ASSESSMENT AND PLAN: 1. Anemia with gastrointestinal bleeding status post 3 units of packed red blood cells. Colonoscopy has been scheduled. 2. Chronic pain. Hydromorphone as needed. 3. Metastatic prostate cancer under care of Dr. Perez. 4. Hypocalcemia. Replace the calcium. 5. Hypokalemia. Replace the potassium and waiting for the colonoscopy. LEVEL OF DOCUMENTATION: 25 minutes. cc: MD Shamir Frazier MD
[2019-02-16] MEDS: VENTOLIN HFA INH PRN (07:53)
[2019-02-16] MEDS: SYMBICORT 160/4.5 MICROGM INHALER INH SCH ×2 (07:54→19:28)
[2019-02-16] MEDS ORDERED: FLEET ENEMA PR ONE (10:33)
[2019-02-16] MEDS: KLOR-CON PO SCH ×3 (10:45→17:11)
[2019-02-16] MEDS ORDERED: DIPRIVAN 1% ONE ×3 (13:02→13:59)
[2019-02-16] MEDS ORDERED: XYLOCAINE-MPF 2% ONE (13:03)
--- NOTE | 2019-02-16 14:22 | ENDOSCOPY OPERATIVE NOTE ---
[facility] ENDOSCOPY OPERATIVE NOTE , COLONOSCOPY PROCEDURE REPORT PATIENT NAME: Supa Royal ADMISSION DATE: 02/16/2019 MR #: [id number] BIRTHDATE: 1940 SURGEON: Serge Scott MD SLABBING MACHINE OPERATOR: Marilou Lacy PROCEDURE DATE: 02/16/2019 STATUS: inpatient INDICATIONS: The patient is a 78 yr old male here for a colonoscopy due to anemia, non-specific and heme-positive stool, melena. PROCEDURE PERFORMED: Colonoscopy with snare polypectomy Colonoscopy with biopsy MEDICATIONS: Per Anesthesia PREP TYPE: GoLytely
[2019-02-16] MEDS: PROTONIX IV SCH (17:10)
[2019-02-16] MEDS: SODIUM CHLORIDE 0.9% INJ SCH (17:11)
[2019-02-16] MEDS ORDERED: CALCIUM GLUCONATE 1 GM in NS 50 ML IV ONE (21:17)
[2019-02-17] MEDS: POTASSIUM CHLORIDE 20 MEQ/SWI 20 MEQ/100 ML IVPB IV SCH ×2 (01:31→04:06)
[2019-02-17] MEDS: DILAUDID IV PRN (01:35)
--- NOTE | 2019-02-17 05:59 | PROGRESS NOTE ---
DATE: 02/16/2019 SUBJECTIVE: The patient is going for endoscopy for evaluation of GI bleeding and appreciated Dr. Scott's consult. OBJECTIVE: Vital Signs: Stable. HEENT: Within normal limits. Neck: Supple. Chest: Clear. Heart: Sounds are regular. Abdomen: Belly is soft, nontender. LABORATORY DATA: None reported. ASSESSMENT AND PLAN: I am going to schedule the labs in the morning and he is anxious to go home. If he is stable, will discharge in the morning. Follow up on colonoscopy findings. LEVEL OF DOCUMENTATION: 25 minutes. cc: MD Shamir Frazier MD
[2019-02-17] MEDS: PROTONIX IV SCH (06:11)
[2019-02-17] MEDS: SODIUM CHLORIDE 0.9% INJ SCH (06:11)
[2019-02-17 07:08] LABS: BASO# 0.03 X1000 (0.0-0.2); BASO% 0.5 % (0.0-0.8); EOS# 0.12 X1000 (0.0-0.7); EOS% 2.1 % (0.0-10.0); HEMATOCRIT 33.4 % (42.0-52.0); HEMOGLOBIN 9.8 g/dL (14.0-18.0); IMM GRAN# 0.02 X1000 (0.0-0.04); IMM GRAN% 0.4 % (0.0-0.5); LYMPH# 1.66 X1000 (1.2-3.4); LYMPH% 29.7 % (20.5-51.1); MCHC 29.3 g/dL (33-37); MONO# 0.53 X1000 (0.11-0.59); MONO% 9.5 % (1.7-9.3); MPV 10.5 FL (7.4-10.4); NEUT# 3.23 X1000 (1.4-6.5); NEUT% 57.8 % (42.2-75.2); PLT 267 X1000 (130-400); RBC 3.63 XMIL (4.7-6.1); WBC 5.59 X1000 (4.8-10.8)
[2019-02-17 07:21] VITALS: BP 144/76
[2019-02-17 07:43] LABS: AGAP 13; BUN 7 mg/dL (8-22); CHLORIDE 107 mmol/L (98-107); COSMO 278; CREATININE 0.6 mg/dL (0.7-1.2); ESTIMATED GFR > 60; GLUCOSE 108 mg/dL (70-104); POTASSIUM 4.2 mmol/L (3.5-5.1); SODIUM 140 mmol/L (136-145); TCO2 20 mmol/L (25-35)
[2019-02-17] MEDS: SYMBICORT 160/4.5 MICROGM INHALER INH SCH (07:46)
[2019-02-17 07:55] LABS: CALCIUM 6.1 mg/dL (8.8-10.2)
[2019-02-17] MEDS ORDERED: CALCIUM GLUCONATE 2 GM in NS 100 ML IV ONE (08:01)
--- NOTE | 2019-02-17 08:10 | ENDOSCOPY OPERATIVE NOTE ---
[facility] ENDOSCOPY OPERATIVE NOTE , PATIENT: Supa Francis ADMISSION DATE: 02/13/2019 MR#: [id number] : 1940 ACCT #: EGD PROCEDURE REPORT PROCEDURE DATE: 02/13/2019 SURGEON: Timoteo Nair MD STATUS: inpatient FLIGHT PURSER: PREOPERATIVE DIAGNOSIS: The patient is a 78 yr old male here for an EGD due to melena and anemia. PROCEDURE PERFORMED: EGD, diagnostic MEDICATIONS: Per Anesthesia TOPICAL ANESTHETIC: none CONSENT: The patient understands the risks and benefits of the procedure and understands that these r isks include, but are not limited to: sedation, allergic reaction, infection, perforation and/or bleeding. Alternative means of evaluation and treatment include, among others: physical exam, x-rays, and/or surgical intervention. The patient elects to proceed with this endoscopic procedure. HISORY AND PHYSICAL: 02/13/2019 DESCRIPTION OF PROCEDURE: During intra-op preparation period all mechanical and medical equipment was checked for proper function. Hand hygiene and appropriate measures for infection prevention was taken. After the risks, benefits and alternatives of the procedure were thoroughly explained, Informed consent was verified, confirmed and timeout was successfully executed by the treatment team. The patient was anesthetized with topical anesthesia and the [id number]-[id number] ([id number]) endoscope was introduced through the mouth and advanced to the second portion of the duoden um. Retroflexion was performed in the stomach and revealed no abnormalities. The gastroscope was then slowly withdraw n and removed. ESOPHAGUS: The EGD was normal. SPECIMENS REMOVED: No ADVERSE EVENTS: There were no complications. POSTOPERATIVE DIAGNOSIS: The EGD was normal. No signs of UGIB on upper endoscopy RECOMMENDATIONS: Full liquid diet today Will discuss possible diagnostic colonoscopy with Dr. Clark on Friday with patient and family Continue trending H/H, transfuse prn for goal hgb 7-8 REPEAT EXAM: Timoteo Nair MD eSigned: Timoteo Nair MD 02/13/2019 7:30 AM cc: PATIENT NAME: Supa Francis MR#: [id number]
[2019-02-17] MEDS ORDERED: FLU VACCINE IM ONE (08:30)
[2019-02-17] MEDS: KLOR-CON PO SCH (08:58)
--- NOTE | 2019-02-18 19:54 | DISCHARGE SUMMARY ---
ADMISSION DATE: 02/10/2019 DISCHARGE DATE: 02/17/2019 DISCHARGING DIAGNOSIS: Anemia and heme-positive stools due to rectal ulcer. SECONDARY DIAGNOSES: 1. Metastatic prostate cancer. 2. Abnormal electrocardiogram with right bundle. 3. Chronic obstructive pulmonary disease. 4. Deafness. 5. Hypertension. 6. Paroxysmal supraventricular tachycardia. 7. Hyperlipidemia. 8. Peripheral artery disease, status post right endarterectomy. 9. Ongoing tobacco abuse. 10. Seborrheic lesion on the right face. 11. Peripheral artery disease in both legs, ankle-brachial index 0.5, under the care of Dr. Stuart. 12. Hypocalcemia. CONSULTS: 1. Dr. Nair. 2. Dr. Scott. PROCEDURES: 1. Transfusion of 3 units of packed red blood cells. 2. Esophagogastroduodenoscopy. No active bleeding ulcers noted. 3. Colonoscopy. Rectal ulcer, nonbleeding, with multiple polyps by Dr. Scott. BRIEF HISTORY: Please see the H and P that was done by Dr. Forte. In brief, he is a 78-year-old white gentleman who was admitted to the hospital with dizziness, passing black stools for the last 1 month. He has a metastatic prostate cancer, under the care of Dr. Perez, undergoing chemotherapy with Casodex, and I do not have the details. He had transferred to the [facility]. The patient was given 3 units of packed RBCs. He has persistent hypocalcemia, requiring several calcium gluconate. Continue Citracal with vitamin D. Further workup, EGD and colonoscopy with above findings. The patient is anxious to go home. The rest of the hospital course was uneventful. LABORATORY DATA FOLLOWS: CBC: White cell count 5.5, hematocrit 33.4, and platelets 267,000. Sodium 140, potassium 4.2, chloride 107, BUN 7, creatinine 0.6, glucose 108, calcium 6.1. LFTs were normal. DISCHARGE INSTRUCTIONS: 1. Flu vaccine, 02/17/2019. 2. Pneumococcal PPV 23 was given 02/17/2019. 3. Quit smoking. 4. Cardizem 120 p.o. b.i.d. 5. Hold the aspirin. 6. Flomax 0.4 p.o. daily. 7. Ventolin HFA as needed. 8. Simvastatin 20 daily. 9. Citracal with vitamin D 1 tablet daily. 10. Symbicort 1 puff p.o. b.i.d. 11. Tylenol as needed for pain. 12. Follow up in my office in 2 weeks as well as Dr. Scott and Dr. Perez. cc: MD Shamir Frazier MD Dr. Becdach Dr. Yousuf
== END 2019-02-17 11:15 | disposition home health service (06) | DRG 394 ==
LOC: P.ED 14:31 → 4N 16:47
PROVIDERS: ADMIT Internal Medicine; ATTEND Internal Medicine

== ENCOUNTER 2019-03-11 19:00 | Inpatient (IN) ==
[2019-03-11] MEDS ORDERED: ADENOCARD IV ONE ×2 (19:08→19:09)
[2019-03-11] MEDS ORDERED: ADENOCARD ONE ×2 (19:14→19:17)
[2019-03-11] MEDS ORDERED: CARDIZEM ONE (19:17)
[2019-03-11] MEDS ORDERED: CARDIZEM IV ONE (19:23)
[2019-03-11] MEDS ORDERED: CARDIZEM 100 MG/NS 100 MG/100 ML IVPB IV SCH (19:30)
--- NOTE | 2019-03-11 19:42 | Diag Imaging Result Doc PS360 ---
EXAM: CHEST-PORTABLE HISTORY: tachycardia TECHNIQUE: Single view COMPARISON: 02/10/2019 FINDINGS: The lungs are well expanded. The heart is not enlarged. The vessels are not distended. There are no infiltrates. No effusion identified. IMPRESSION: Negative exam. Electronically signed by John Aguirre 03/11/2019 7:40 PM
[2019-03-11 19:46] LABS: BASO# 0.02 X1000 (0.0-0.2); BASO% 0.4 % (0.0-0.8); EOS# 0.18 X1000 (0.0-0.7); EOS% 3.3 % (0.0-10.0); HEMATOCRIT 40.6 % (42.0-52.0); HEMOGLOBIN 12.4 g/dL (14.0-18.0); LYMPH# 1.55 X1000 (1.2-3.4); LYMPH% 28.3 % (20.5-51.1); MCH 26.7 PG (27-31); MCHC 30.5 g/dL (33-37); MCV 87.3 FL (81-99); MONO% 7.3 % (1.7-9.3); MPV 10.2 FL (7.4-10.4); NEUT# 3.32 X1000 (1.4-6.5); NEUT% 60.7 % (42.2-75.2); PLT 258 X1000 (130-400); RBC 4.65 XMIL (4.7-6.1); WBC 5.47 X1000 (4.8-10.8)
--- NOTE | 2019-03-11 19:53 | EKG Report ---
Test Performed on : 03/11/2019 7:20:52 PM Test Reason : cper 3 Blood Pressure : / mmHG Vent. Rate : 120 BPM Atrial Rate : 120 BPM P-R Int : 140 ms QRS Dur : 126 ms QT Int : 356 ms P-R-T Axes : 059 202 048 degrees QTc Int : 503 ms Sinus tachycardia. with premature supraventricular complexes. Right bundle branch block Abnormal ECG When compared with ECG of 11-MAR-2019 19:07, (Unconfirmed) premature supraventricular complexes. are now present Vent. rate has decreased BY 73 BPM Borderline criteria for Lateral infarct are no longer present Unconfirmed Result
--- NOTE | 2019-03-11 20:24 | PROVIDER DOCUMENTATION ---
This chart was entered by Kimberly Vance Scribe, acting as scribe for Migue Cali MD. HPI-Cardiac General - General Chief Complaint: Palpitations Stated Complaint: SVT Time Seen by Provider: 03/11/19 19:08 Source: patient, EMS Allergies/Adverse Reactions: Patient Allergies Allergy/AdvReac Type Severity Reaction Status Date / Time No Known Allergies Allergy Verified 02/10/19 14:40 Home Medications: Home Medication List Medication Instructions Recorded Confirmed Last Taken Type Albuterol Sulfate Inhaler 2 puff INH BID PRN 05/28/15 02/10/19 11/12/18 08:00 History [Ventolin Hfa] Diltiazem HCl [Cartia Xt] 1 cap PO BID 05/28/15 02/10/19 11/13/18 08:00 History Tamsulosin [Flomax] 0.4 mg PO BID 05/28/15 02/10/19 11/13/18 08:00 History Simvastatin 20 mg PO QHS 05/22/16 02/10/19 11/12/18 20:00 History Acetaminophen [Tylenol] 1,000 mg PO Q8H tab 11/20/18 02/10/19 Unknown Rx Calcium Citrate/Vitamin D 1 ea PO DAILY tab 11/20/18 02/10/19 Unknown Rx [Citracal + D] Budesonide/Formoterol Inhaler 2 puff INH RTBID inhaler 02/17/19 Unknown Rx [Symbicort 160/4.5 Microgm Inhaler] - History of Present Illness-Cardiac Nature of Presenting Problem: 78 y/o male presents to the ED via EMS with SVT. 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 The patient reports he usually responds well to Cardizem. EMS states HR 180-199 en route and O2 97%. The patient reports chest pain which resolved prior to EMS arrival. Quality of Pain: reports: none Onset/Duration: just prior to arrival, other (1844) Timing: still present Palpitation Quality: fast/pounding heart beat History of arrythmia: reports: SVT Recent use of:: reports: no stimulants Prior Chest Pain/Cardiac Workup: denies: heart attack Associated Symptoms: reports: shortness of breath (chronic). 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 denies: syncope Respiratory: reports: shortness of breath (chronic). denies: hemoptysis, wheezing Gastrointestinal: denies: diarrhea, nausea, vomiting Genitourinary: reports: no symptoms reported Musculoskeletal: reports: no symptoms reported Integumentary: reports: no symptoms reported Neurological: reports: no symptoms reported Psychiatric: reports: no symptoms reported Endocrine: reports: no symptoms reported Hematologic/Lymphatic: reports: no symptoms reported Allergic/Immunologic: reports: no symptoms reported All Other Systems: Reviewed and Negative Past History - Adult - PAST MEDICAL HISTORY-ADULT Review of Records: reports: Old Records Reviewed, Nursing Assessment Review, Medications Reviewed Major Childhood Illnesses: reports: denies history Cardiovascular: reports: arrhythmia (SVT), HTN, hyperlipidemia Respiratory: reports: COPD Gastrointestinal: reports: denies history Obstetrical/Gynecological: reports: denies history Genitourinary: reports: prostate cancer Musculoskeletal: reports: intervertebral disc disease Neurological: reports: denies history Endocrine/Immune: reports: denies history Other Conditions: reports: denies history - PRIOR SURGERIES/PROCEDURES Surgical/Procedure History: reports: appendectomy, other (carotidectomy) - IMMUNIZATION STATUS Childhood Immunizations: See Nurse Assessment Flu Vaccine: See Nurse Assessment - FAMILY HISTORY Family History: reviewed, not pertinent - SOCIAL HISTORY Smoking: cigarettes, greater than 1 pack/day Provider spent 3-5 mins advising pt. on dangers of tobacco.: Discussed manners to quit use, and f/u contacts for add'l counseling. Living Situation: family Physical Exam-General - PHYSICAL EXAM-ADULT Initial Vital Signs Reviewed: Yes - CONSTITUTIONAL General Appearance: alert, other (obvious hearing loss) - HEAD, EARS, NOSE, MOUTH & THROAT HENMT: normocephalic/atraumatic - RESPIRATORY Respiratory: lungs clear, normal breath sounds. negative: rales, rhonchi, wheezing - CARDIOVASCULAR Cardiovascular: tachycardia - SKIN Integumentary: normal color, warm/dry. negative: diaphoresis - NEUROLOGIC Neurologic: grossly normal - HEART Score HEART Score: History: Slightly Suspicious HEART Score: ECG: Normal HEART Score: Age: > or = 65 Years HEART Score: Risk Factors for Atherosclerotic Disease: 1 or 2 Risk Factors HEART Score: Troponin: < or = Normal Limit Total HEART Score:: 3 Progress - PLAN OF CARE/RESULTS Progress/Plan/Lab Results: Vital Signs - 8 hr 03/11/19 19:05 Pulse Rate 195 H Respiratory Rate 17 Blood Pressure 96/63 O2 Sat by Pulse Oximetry 97 Laboratory Results - last 24 hr 03/11/19 03/11/19 03/11/19 19:32 19:32 19:32 WBC 5.47 RBC 4.65 L Hgb 12.4 L Hct 40.6 L MCV 87.3 MCH 26.7 L MCHC 30.5 L RDW Std Deviation 18.0 H Plt Count 258 MPV 10.2 Immature Gran % (Auto) 0.0 Neut % (Auto) 60.7 Lymph % (Auto) 28.3 Perkins % (Auto) 7.3 Eos % (Auto) 3.3 Baso % (Auto) 0.4 Immature Gran # (Auto) 0.00 Neut # (Auto) 3.32 Lymph # (Auto) 1.55 Perkins # (Auto) 0.40 Eos # (Auto) 0.18 Baso # (Auto) 0.02 Sodium Potassium Chloride Carbon Dioxide Anion Gap BUN Creatinine Estimated GFR/1.73 m2 BUN/Creatinine Ratio Glucose Calculated Osmolality Calcium Total Bilirubin AST ALT Alkaline Phosphatase Creatine Kinase 27 Troponin T < 0.010 Total Protein Albumin Globulin Albumin/Globulin Ratio TSH 03/11/19 03/11/19 19:32 19:32 WBC RBC Hgb Hct MCV MCH MCHC RDW Std Deviation Plt Count MPV Immature Gran % (Auto) Neut % (Auto) Lymph % (Auto) Perkins % (Auto) Eos % (Auto) Baso % (Auto) Immature Gran # (Auto) Neut # (Auto) Lymph # (Auto) Perkins # (Auto) Eos # (Auto) Baso # (Auto) Sodium 142 Potassium 3.6 Chloride 102 Carbon Dioxide 22 L Anion Gap 18 BUN 12 Creatinine 1.1 Estimated GFR/1.73 m2 > 60 BUN/Creatinine Ratio 11 Glucose 177 H Calculated Osmolality 287 Calcium 8.4 L Total Bilirubin 0.28 AST 11 ALT 7 L Alkaline Phosphatase 187 H Creatine Kinase Troponin T Total Protein 6.8 Albumin 4.6 Globulin 2.2 Albumin/Globulin Ratio 2.1 TSH 1.13 Orders Category Date Time Status Cardiac Monitoring DIRECTED Care 03/11/19 19:09 Active CHEST-PORTABLE [RAD] Stat Exams 03/11/19 19:21 Completed CBC WITH ELECTRONIC DIFF [HEME] Stat Lab 03/11/19 19:32 Completed CK PROFILE [SP CHEM] Stat Lab 03/11/19 19:32 Completed CMP [COMPREHENSIVE METABOLIC PANEL] [CHEM] Stat Lab 03/11/19 19:32 Completed TROPONIN T Stat Lab 03/11/19 19:32 Completed TSH Stat Lab 03/11/19 19:32 Completed Adenosine [Adenocard] Med 03/11/19 19:17 Discontinued 12 mg .ROUTE .STK-MED ONE Adenosine [Adenocard] Med 03/11/19 19:09 Discontinued 12 mg IV NOW ONE Adenosine [Adenocard] Med 03/11/19 19:14 Discontinued 6 mg .ROUTE .STK-MED ONE Adenosine [Adenocard] Med 03/11/19 19:08 Discontinued 6 mg IV NOW ONE Diltiazem 100 mg/Ns [Cardizem 100 mg/Ns] Med 03/11/19 19:30 Active 100 mg in 100 ml IV As Directed mls/hr Diltiazem [Cardizem] Med 03/11/19 19:23 Discontinued 15 mg IV NOW ONE Diltiazem [Cardizem] Med 03/11/19 19:17 Discontinued 25 mg .ROUTE .STK-MED ONE Oxygen Device Stat Oth 03/11/19 19:09 Active EKG [EKG] Stat Ther 03/11/19 19:03 Draft 1910: Adenosine 6 mg. given with improvement and then significant rise in HR back to 150s. 1913: Cardizem 15 mg. given HR improved to 120s then began to rise again with BP 110/54. 1917 Adenosine 12 mg given with again improvement of HR to 120s and stable BP. Will start Cardizem drip 5 mg/hr. Result Diagrams: 03/11/19 19:32 03/11/19 19:32 - REASSESSMENT Reassessment #1 Time Reassessed: 20:03 Status: other (patient is resting comfortably,) - EKG 1 Time of EKG reading by physician:: 19:07 EKG Read and Signed by:: Migue Cali EKG Interpretation (*Must complete 3 of following elements*): Abnormal Rate: 193 Rhythm: supraventricular tachycardia Comments: low voltage QRS,right BBB, possible lateral & inferior infarct 2 Time of EKG reading by physician:: 19:20 EKG Read and Signed by:: Migue Cali EKG Interpretation (*Must complete 3 of following elements*): Abnormal Rate: 120 Rhythm: sinus tachycardia w/premature supraventricular complexes Comments: right BBB 3 Time of EKG reading by physician:: 21:03 EKG Read and Signed by:: Migeu Cali EKG Interpretation (*Must complete 3 of following elements*): Abnormal Rate: 115 Rhythm: sinus tachycardia Comments: right BBB, T wave abnormality, consider lateral ischemia - XRAY 1 XRAY Study: Chest (EXAM: CHEST-PORTABLE HISTORY: tachycardia TECHNIQUE: Single view COMPARISON: 02/10/2019 FINDINGS: The lungs are well expanded. The heart is not enlarged. The vessels are not distended. There are no infiltrates. No effusion identified. IMPRESSION: Negative exam. Electronically signed by John Aguirre 03/11/2019 7:40 PM) - CONSULTS/PCP/HOSPITALIST Notification #1 *Consult/PCP/Hospitalist*: HospitalistArpit Time Discussed: 20:58 Reason/Comments: SVT Consult Disposition: Admit Departure - Departure Date of Disposition Decision: 03/11/19 Time of Disposition Decision: 20:58 DIAGNOSIS: SVT (supraventricular tachycardia) Disposition: ADMITTED INPATIENT 09 Certified Medical Emergency: Urgent Condition: Stable Referrals and Follow-Ups: Sean Mckay MD [Primary Care Provider] - - Critical Care Note This patient required my direct & personal management of CC.: Yes Total Time (mins): 55 Critical Care Statement: This patient required my direct personal management to treat or rule out processes, the absence of which, could potentiallly result in sudden, clinically significant life or limb threatening deterioration. Attestation - Physician/ GHULAM Attestation Patient care was provided by Advanced Practice Provider:: No The physician spent face to face time with patient:: Yes Advanced Practice Provider documentation review:: Supervising physician onsite and consulted in the evaluation and care of this patient. The physician did have a face to face encounter with the patient. This chart was documented by the indicated scribe, (Kimberly Vance, Scribe) and accurately reflects the services I performed and decisions made by me, Migue Cali MD, as attested by the provider's signature.
[2019-03-11 20:34] LABS: BUN 12 mg/dL (8-22); CALCIUM 8.4 mg/dL (8.8-10.2); CREATININE 1.1 mg/dL (0.7-1.2); ESTIMATED GFR > 60; GLUCOSE 177 mg/dL (70-104); GOT 11 U/L (10-34); GPT 7 U/L (10-44); TCO2 22 mmol/L (25-35); TOTAL BILIRUBIN 0.28 mg/dL (0.20-1.00); TOTAL PROTEIN 6.8 g/dL (6.3-8.3)
[2019-03-11 20:38] LABS: ALBUMIN 4.6 g/dL (3.5-5.0); ALKALINE PHOSPHATASE 187 U/L (32-122); CHLORIDE 102 mmol/L (98-107); POTASSIUM 3.6 mmol/L (3.5-5.1); SODIUM 142 mmol/L (136-145)
[2019-03-11 20:48] LABS: AGAP 18; ALB/GLOB RATIO 2.1; COSMO 287
[2019-03-12] MEDS: PRILOSEC PO SCH (07:00)
--- NOTE | 2019-03-12 07:41 | HISTORY AND PHYSICAL ---
CHIEF COMPLAINT: Palpitations. HISTORY OF PRESENT ILLNESS: Supa Royal is a 78-year-old male who has a history of hypertension, hyperlipidemia, prostate cancer with bone metastasis, peptic ulcer disease, paroxysmal and atrial tachycardia. He presents to the hospital because of palpitations. On arrival to the emergency room the patient was noted to be in SVT. The patient reports having some slight chest pain. No shortness of breath. The patient indicates that he has had multiple episodes of this kind of presentation in the past. In the ER, the patient got adenosine 6 mg and a second dose of adenosine of 12 mg. The patient also received Cardizem 15 mg, and was placed on a Cardizem infusion. The patient will now be transferred to the cardiac unit for further management. PAST MEDICAL HISTORY: Notable for hypertension, hyperlipidemia, paroxysmal atrial tachycardia, COPD, prostate cancer with metastasis to the thoracic spine as well as right hip. SOCIAL HISTORY: The patient smokes cigarettes. No alcohol or drug use. ALLERGIES: No known drug allergies. FAMILY HISTORY: Positive for cancer as well as heart disease. PAST SURGICAL HISTORY: Right carotid endarterectomy. Appendectomy as well as a moa placed in the right hip. MEDICATIONS: His medications include the following. 1. Ventolin HFA 2 puffs b.i.d. p.r.n. 2. Diltiazem 1 tab twice a day. 3. Tamsulosin 0.4 mg p.o. twice a day. 4. Simvastatin 20 mg p.o. once a day. 5. Tylenol 1 g q.8 hours. 6. Calcium with vitamin D 1 tab daily. 7. Symbicort 160/4.5 2 puffs twice a day. REVIEW OF SYSTEMS: Constitutional: No fever. 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 Eyes: He uses glasses. ENT: He has sinus problems with hearing problems. Cardiovascular: See history of present illness. Respiratory: He has cough, GI: He has abdominal pains. : No dysuria. History of prostate cancer. Endocrine: No thyroid disease or diabetes. Hematology: He has areas of ecchymosis on the skin. Musculoskeletal: He has low back pain. PHYSICAL EXAMINATION: VITAL SIGNS: Pulse rate is 195, respiratory 17, blood pressure is 96/60, and oxygen saturation is 97%. HEENT: Atraumatic, normocephalic. Eyes anicteric. Extraocular movements intact. No oral lesions noted. NECK: No lymphadenopathy or thyromegaly. CARDIOVASCULAR: S1, S2. RESPIRATORY: He has evidence of good air entry bilaterally. ABDOMEN: Soft. Nontender. No masses felt. EXTREMITIES: No evidence of edema. CENTRAL NERVOUS SYSTEM: No obvious focal deficits noted. LABORATORY STUDIES: WBC 5.47, hematocrit 40.6 with a platelet count of 258,000. Sodium 142, potassium 3.6, chloride 102, bicarb 23, BUN is 12, creatinine is 1.1, and glucose is 177. X-ray of chest negative exam. EKG shows evidence of sinus tachycardia, heart rate of 120 with premature supraventricular complexes. Right bundle branch block. ASSESSMENT AND PLAN: 1. Supraventricular tachycardia. Place patient on telemetry. Follow up on serial cardiac enzymes. Check thyroid function test. Maintain patient on Cardizem infusion. Request 2D echo of the heart. Consult with Cardiology. 2. Hypertension. Optimize blood pressure control. 3. Hyperlipidemia. Continue statin. 4. History of prostate cancer with mets to the thoracic spine as well as right hip region. Aware. 5. Tobacco use history. Recommend nicotine patch. 6. Peptic ulcer disease. Recommend PPI. 7. Hyperglycemia. Check hemoglobin A1c level. 8. Deep vein thrombosis prophylaxis. Lovenox. 9. Gastrointestinal prophylaxis. PPI. cc: MD Michele Laboy MD
--- NOTE | 2019-03-12 07:50 | EKG Report ---
Test Performed on : 03/11/2019 9:03:26 PM Test Reason : ED. NO EKG ORDER FOR MUSE Blood Pressure : / mmHG Vent. Rate : 115 BPM Atrial Rate : 115 BPM P-R Int : 158 ms QRS Dur : 126 ms QT Int : 340 ms P-R-T Axes : 041 153 075 degrees QTc Int : 470 ms Sinus tachycardia. Right bundle branch block T wave abnormality, consider lateral ischemia Abnormal ECG When compared with ECG of 11-MAR-2019 19:20, (Unconfirmed) premature supraventricular complexes. are no longer present Unconfirmed Result
[2019-03-12] MEDS: CITRACAL + D PO SCH (09:00)
[2019-03-12] MEDS: FLOMAX PO SCH ×2 (10:20→20:27)
[2019-03-12] MEDS: NS 1,000 ML IV SCH ×2 (10:20→12:00)
[2019-03-12] MEDS: NORCO-7.5 PO PRN ×2 (10:21→20:33)
[2019-03-12] MEDS: NICODERM PATCH TD PRN (10:21)
[2019-03-12] MEDS: LOVENOX SUBQ SCH (10:22)
--- NOTE | 2019-03-12 11:45 | EKG Report ---
Test Performed on : 03/12/2019 10:39:21 AM Test Reason : svt Blood Pressure : / mmHG Vent. Rate : 091 BPM Atrial Rate : 091 BPM P-R Int : 164 ms QRS Dur : 126 ms QT Int : 406 ms P-R-T Axes : 049 129 111 degrees QTc Int : 499 ms Normal sinus rhythm. Right bundle branch block T wave abnormality, consider lateral ischemia Abnormal ECG When compared with ECG of 11-MAR-2019 21:03, (Unconfirmed) No significant change was found Confirmed by Jann APPIAH, Shamir ([id number]) on 03/15/2019 8:26:55 AM
--- NOTE | 2019-03-12 12:49 | CARDIOLOGY CONSULTATION ---
DATE: 03/12/2019 INDICATION FOR THE CONSULTATION: Supraventricular tachycardia. HISTORY OF PRESENT ILLNESS: Mr. Royal is a 78-year-old male with a history of hypertension, hyperlipidemia, metastatic prostate cancer, and previous GI bleed with a lower GI tract source found. The patient was at home it sounds like yesterday evening sitting at a computer when he had the onset of palpitations. He has a known history of SVT and had been compliant with his diltiazem. He was brought into the ER, noted to be in rapid SVT and was given adenosine 6 mg followed by 12 mg with subsequent conversion to sinus rhythm. The patient was admitted for further evaluation. PAST MEDICAL HISTORY: 1. Significant for carotid artery disease with previous carotid endarterectomy by Dr. Gregorio. 2. SVT. The patient has been on beta-blockers. Patient has had a long history of not following up with our office related to this issue. 3. Hypertension. 4. Hyperlipidemia. 5. Metastatic prostate cancer currently following with [facility]. 6. COPD. 7. GI bleed. Evaluated in February 2019, and found to have multiple polyps, as well as a rectal ulcer. The patient received transfusions during this evaluation. 8. History of degenerative arthritis of the hip likely also related to metastases to the hip. The patient is nonweightbearing and apparently uses a wheelchair primarily for ambulation. SOCIAL HISTORY: The patient continues to smoke. No alcohol or illicit drugs. FAMILY HISTORY: Significant for some form of cancer. REVIEW OF SYSTEMS: Ten system review of systems is negative, except for those things mentioned in HPI. PHYSICAL EXAMINATION: Vital Signs: The patient is afebrile. His heart rate is 86. His blood pressures have been quite elevated, more recently of 182/77. General: No acute distress. HEENT: Oropharynx is moist. Poor dentition. Eye examination is pink conjunctivae, white sclerae. Neck: Examination shows no obvious thyromegaly or thyroid tenderness. Cardiovascular: He sounds to be in a regular rate and rhythm. He has no obvious murmurs. He has no S3. He has no lower extremity edema. Chest: Exam is clear bilaterally. He has no increased work of breathing. Abdomen: Soft, nontender, nondistended. No obvious organomegaly. Skin exam: Warm and dry throughout without any rashes. Neurological: He is moving all extremities well. He has no lateralizing deficits. PERTINENT DATA: EKG on the at 2103 hours suggests sinus tachycardia with a right bundle branch block. He appears to have a normal P-wave axis on that study. His EKG on the at 1039 hours shows sinus rhythm. Again, what appears to be a normal P-wave axis, right bundle branch block. His last EKG reviewed on the showed sinus tach 120 right bundle branch block. All those EKGs were reviewed by me. Notably, he does have some T-wave inversions laterally suggesting possible ischemic changes. His chest x-ray shows no abnormalities. His laboratory data shows a white count of 5.5, hematocrit of 40. His platelet count is 258. His sodium is 142, potassium 3.6, his BUN is 12 creatinine is 1.1. His cardiac enzymes are negative times multiple sets. His TSH and free T4 were normal. ASSESSMENT: Mr. Royal is a 78-year-old gentleman with a history of supraventricular tachycardia, carotid artery disease, who presents with recurrent episodes of supraventricular tachycardia. Notably, he has had a recent gastrointestinal bleed. He has metastatic prostate cancer, and he also has had repetitive noncompliance with followup with his visits. PLAN: At this point, we will discontinue his calcium channel hollie and place him on metoprolol 25 q. 6 hours. I will initiate Multaq at 400 b.i.d. Check an echocardiogram on him. He does have some changes on his EKG in the lateral chest leads suggesting possible ischemic changes, which certainly could be from his reported rates in EMS transfer. Unfortunately, I do not have any of those records available for me to review, but reportedly his rates were quite high and he was treated with adenosine. We will likely plan on stressing the patient and do an ischemic workup via noninvasive testing. ADDENDUM: EF normal on his echo with preserved wall motion and no significant valvular abnormalities. There is a suggestion of a small anterior pericardial effusion. cc: MD Michele Jerez MD MTDD
[2019-03-12] MEDS: LOPRESSOR PO SCH ×2 (15:25→19:57)
--- NOTE | 2019-03-12 17:26 | ECHO REPORT ---
ORDER DATE: 03/11/2019 INDICATION: Supraventricular tachycardia and chronic obstructive pulmonary disease. FINDINGS: 1. The right atrium appears normal in size at 3.7 cm. 2. Mild tricuspid regurgitation. RV systolic pressure of 20 mmHg. 3. Normal RV size and systolic function. 4. Trace pulmonic insufficiency. 5. Mild left atrial enlargement with a volume index of 31. 6. No mitral valve prolapse. Trace mitral regurgitation. No mitral stenosis. 7. Normal LV size, end-diastolic dimension of 5.1 cm. Mild left ventricular hypertrophy with a posterior and interventricular septal wall thickness 1.3 cm each. Normal LV systolic function. The estimated EF is 65% with normal wall motion. 8. Aortic valve opens well. It is trileaflet. No evidence of stenosis or insufficiency. 9. Aorta appears normal in the visualized segments. 10. There may be a small primarily anterior pericardial effusion with no evidence of tamponade physiology. cc: MD Zac Jerez MD Jagan Reddy, MD
--- NOTE | 2019-03-12 19:47 | PROGRESS NOTE ---
DATE: 03/12/2019 SUBJECTIVE: 78-year-old white male came in with chest pain with SVT wide complex tachycardia and the right bundle. Patient was given Adenocard, subsequently in sinus with right bundle, and was admitted in PVC. The patient has occasional dull pain. Echo was being done in the emergency room. Patient was seen in the ER. PAST MEDICAL HISTORY: Reviewed. PAST SURGICAL HISTORY: Reviewed. MEDICINES: Reviewed. ALLERGIES: Not known. PHYSICAL EXAMINATION: Vital signs: Temperature is 97 degrees, pulse 92, blood pressure is still running high. 6 feet tall, 198 pounds. HEENT: Within normal limits. Chest: Clear. Heart: Sounds are regular. Abdomen: Belly is soft, nontender. Neurologic: No neurological deficits. INVESTIGATIONS: Cardiac enzymes were negative. Thyroid function tests were normal. EKG normal sinus with right bundle. ASSESSMENT AND PLAN: 1. Metastatic prostate cancer, under the care of Dr. Perez. 2. Supraventricular tachycardia with right bundle, as per Dr. Whittington. Normal thyroid function tests. Normal cardiac enzymes. We will do the noninvasive testing to rule out ischemic heart disease on Friday, in light of risk factors. 3. Anemia. Recent workup rectal ulcer stable. 4. Deafness, stable. 5. Peripheral artery disease with right carotid endarterectomy. 6. Ongoing tobacco abuse. 7. Peripheral artery disease in both leg. 8. Plan is follow up on echocardiography, and Dr. Whittington started on metoprolol 25 q.6 and Multaq 400 p.o. b.i.d., and he is on Lovenox for deep venous thrombosis prophylaxis. 9. Chronic tobacco abuse. Nicotine substitute. We will hold the Symbicort and albuterol due to tachycardia. 10. Hypocalcemia, due to Zometa. Continue calcium, vitamin D. 11. Benign prostatic hypertrophy with prostate cancer, on Flomax. 12. Hyperlipidemia, on simvastatin. 13. I appreciate Cardiology consult. LEVEL OF DOCUMENTATION: 35 minutes. cc: Michele Mckay MD
[2019-03-12] MEDS: MULTAQ PO SCH (20:27)
[2019-03-12] MEDS ORDERED: ZOCOR PO SCH (21:00)
[2019-03-13] MEDS: LOPRESSOR PO SCH ×4 (01:48→21:38)
[2019-03-13] MEDS: NORCO-7.5 PO PRN (04:24)
[2019-03-13] MEDS: PRILOSEC PO SCH (06:30)
--- NOTE | 2019-03-13 08:28 | EKG Report ---
Test Performed on : 03/13/2019 06:42:56 AM Test Reason : dyspnea Blood Pressure : / mmHG Vent. Rate : 072 BPM Atrial Rate : 072 BPM P-R Int : 174 ms QRS Dur : 128 ms QT Int : 460 ms P-R-T Axes : 041 136 115 degrees QTc Int : 503 ms Normal sinus rhythm. Right bundle branch block T wave abnormality, consider lateral ischemia Abnormal ECG When compared with ECG of 12-MAR-2019 10:39, (Unconfirmed) T wave inversion less evident in Anterior leads Confirmed by Jann APPIAH, Shamir ([id number]) on 03/15/2019 8:32:31 AM
[2019-03-13] MEDS: LOVENOX SUBQ SCH ×3 (08:33→11:17)
[2019-03-13] MEDS: MULTAQ PO SCH ×2 (08:33→21:38)
[2019-03-13] MEDS: ASPIRIN PO SCH ×3 (08:33→11:17)
[2019-03-13] MEDS: FLOMAX PO SCH ×2 (08:33→21:38)
[2019-03-13] MEDS: CITRACAL + D PO SCH (08:33)
--- NOTE | 2019-03-13 13:34 | PROGRESS NOTE ---
DATE: 03/13/2019 SUBJECT: Appreciated Cardiology consult. Scheduled for stress test on Friday. No chest pain. Currently in sinus AD with right bundle. Caregiver was at bedside. PHYSICAL EXAMINATION: Temperature is 97 degrees, pulse is 80. Vitals are stable, 93% on room air.HEENT: Within normal limits. Chest: Clear. Heart: Sounds are regular. Belly: Soft, nontender. INVESTIGATION: Cardiac enzymes were negative. Normal thyroid function tests. ASSESSMENT AND PLAN: SVT, recurrent, and normal thyroid function test ruled out. Stress tests on Friday. He has an appointment in my office. We will cancel it and continue on Multaq and Lovenox and aspirin. Lower GI bleeding. Stable hematocrit. BPH, on Flomax, chronic pain on [place], prostate cancer metastatic under treatment by Dr. Perez. LEVEL OF DOCUMENTATION: 25 minutes. cc: Michele Mckay MD
[2019-03-13] MEDS: DUONEB (A & A) INH PRN (21:11)
[2019-03-14] MEDS: LOPRESSOR PO SCH ×4 (02:05→20:38)
[2019-03-14] MEDS: PRILOSEC PO SCH (05:27)
[2019-03-14] MEDS: FLOMAX PO SCH ×2 (08:34→20:38)
[2019-03-14] MEDS: ASPIRIN PO SCH (08:34)
[2019-03-14] MEDS: MULTAQ PO SCH ×2 (08:34→20:38)
[2019-03-14] MEDS: CITRACAL + D PO SCH (08:34)
[2019-03-14] MEDS: LOVENOX SUBQ SCH (08:34)
[2019-03-14] MEDS: NICODERM PATCH TD PRN (09:38)
--- NOTE | 2019-03-14 10:01 | EKG Report ---
Test Performed on : 03/14/2019 06:30:05 AM Test Reason : dyspnea, svt Blood Pressure : / mmHG Vent. Rate : 081 BPM Atrial Rate : 081 BPM P-R Int : 170 ms QRS Dur : 132 ms QT Int : 380 ms P-R-T Axes : 047 128 088 degrees QTc Int : 441 ms Normal sinus rhythm. Right bundle branch block T wave abnormality, consider lateral ischemia Abnormal ECG When compared with ECG of 13-MAR-2019 06:42, (Unconfirmed) QT has shortened Confirmed by Jann APPIAH, Shamir ([id number]) on 03/15/2019 8:37:31 AM
--- NOTE | 2019-03-14 12:14 | CARDIOLOGY PROGRESS NOTE ---
DATE: 03/14/2019 CHIEF COMPLAINT: Irregular heartbeat, dyspnea, palpitations. SUBJECTIVE: The patient is resting in bed. He is not having any new complaints. There has been no more arrhythmias. I reviewed the telemetry, and he has been in steady sinus rhythm. His EKG today shows sinus rhythm with a diffuse T wave abnormality in the inferolateral leads. OBJECTIVE: Blood pressure is 149/75, temperature 97.6, pulse 73, respirations 15. Awake, alert, oriented. Hard of hearing. HEENT is unremarkable. Chest sounds clear to auscultation and percussion. Heart sounds regular and rhythmic. Abdomen: Nontender. Extremities showed no obvious significant edema. Neurologic: Follows commands. Moves all 4 extremities. DIAGNOSTIC DATA: The last troponin was from 03/12/2019, and it was normal. IMPRESSION: 1. The patient presented with paroxysmal supraventricular tachycardia, symptomatic. He had palpitations at that time. He is back in sinus rhythm. 2. History of hypertension. 3. History of hyperlipidemia. 4. History of metastatic prostate cancer. 5. History of carotid artery disease post endarterectomy. 6. Abnormal EKG. 7. coronary atherosclerosis. RECOMMENDATIONS: At this time, the patient is awaiting stress testing that has been scheduled for 12/14/2018. Depending on the results, further instructions will be given. At this time, he appears to be clinically stable. cc: MD Michele Combs MD MTDD
--- NOTE | 2019-03-14 13:20 | PROGRESS NOTE ---
DATE: 03/14/2019 SUBJECTIVE: The patient is going to the bathroom. Caregiver at bedside. No chest pain. Currently is in sinus. PHYSICAL EXAMINATION: Vital Signs: Temperature is 97 degrees, pulse 70, blood pressure is stable, saturating 95% on room air. HEENT: Within normal limits. Chest: Clear. Heart: Heart sounds are regular. DIAGNOSTIC DATA: EKG: Normal sinus, right bundle, with T-wave inversion in the lateral leads. ASSESSMENT AND PLAN: 1. Supraventricular tachycardia, wide-complex tachycardia, status post Adenocard, currently in sinus on beta blockers. Continue, aspirin, Lovenox and Multaq. 2. History of gastrointestinal bleeding, stable. 3. Metastatic prostate cancer, stable. 4. Ruled out for myocardial infarction. Normal thyroid function tests. Scheduled for stress tests in the morning. Based on that, further recommendations will be followed. LEVEL OF DOCUMENTATION: 25 minutes. cc: Michele Mckay MD
[2019-03-14] MEDS: DUONEB (A & A) INH PRN (16:15)
[2019-03-14] MEDS: NORCO-7.5 PO PRN (17:06)
[2019-03-14] MEDS ORDERED: CARDIZEM PO ONE (18:11)
[2019-03-14] MEDS ORDERED: CARDIZEM IV ONE (18:15)
[2019-03-14] MEDS: CARDIZEM 100 MG/NS 100 MG/100 ML IVPB IV SCH (18:30)
[2019-03-14] MEDS ORDERED: CARDIZEM 100 MG/NS 100 MG/100 ML IVPB IV SCH (18:30)
--- NOTE | 2019-03-14 20:03 | EKG Report ---
Test Performed on : 03/14/2019 7:33:17 PM Test Reason : SVT Blood Pressure : / mmHG Vent. Rate : 082 BPM Atrial Rate : 082 BPM P-R Int : 170 ms QRS Dur : 126 ms QT Int : 390 ms P-R-T Axes : 043 127 104 degrees QTc Int : 455 ms Normal sinus rhythm. Right bundle branch block T wave abnormality, consider lateral ischemia Abnormal ECG When compared with ECG of 14-MAR-2019 06:30, (Unconfirmed) No significant change was found Confirmed by Jnan APPIAH, Shamir ([id number]) on 03/15/2019 7:20:58 PM
[2019-03-15] MEDS: LOPRESSOR PO SCH ×4 (02:21→21:16)
--- NOTE | 2019-03-15 07:29 | EKG Report ---
Test Performed on : 03/15/2019 06:50:25 AM Test Reason : SVT Blood Pressure : / mmHG Vent. Rate : 065 BPM Atrial Rate : 065 BPM P-R Int : 172 ms QRS Dur : 132 ms QT Int : 492 ms P-R-T Axes : 059 117 124 degrees QTc Int : 511 ms Normal sinus rhythm. Right bundle branch block T wave abnormality, consider lateral ischemia Abnormal ECG When compared with ECG of 14-MAR-2019 19:33, (Unconfirmed) T wave inversion more evident in Lateral leads Confirmed by Jann APPIAH, Shamir ([id number]) on 03/15/2019 8:40:17 AM
[2019-03-15] MEDS: NORCO-7.5 PO PRN (07:45)
[2019-03-15] MEDS: DUONEB (A & A) INH PRN ×2 (07:59→21:24)
[2019-03-15] MEDS: ASPIRIN PO SCH (08:34)
[2019-03-15] MEDS: LOVENOX SUBQ SCH (08:35)
[2019-03-15] MEDS: MULTAQ PO SCH ×2 (08:35→21:10)
[2019-03-15] MEDS: FLOMAX PO SCH ×2 (08:35→21:10)
[2019-03-15] MEDS: CITRACAL + D PO SCH (08:35)
--- NOTE | 2019-03-15 09:01 | CARDIOLOGY PROGRESS NOTE ---
DATE: 03/13/2019 CHIEF COMPLAINT: Palpitations. SUBJECTIVE: Mr. Royal is feeling just back to his normal self. He presented on the to the ER with palpitations. Initial chest x-ray showed no abnormalities. Electrocardiogram at the time of presentation showed probably atrial tachycardia. The rate was controlled with Cardizem and he is feeling normal now. He is not having any dyspnea, no abdominal discomfort. He just finished eating his lunch. OBJECTIVE: Vital signs: Blood pressure is 163/80, pulse 73, respirations 18, temperature 97.6. General: He is awake, alert, sitting upright, in no distress. HEENT: Unremarkable. Chest: Sounds clear to auscultation and percussion. Heart: Sounds are regular and rhythmic. I do not hear a gallop or murmur. Abdomen: Nontender. Extremities: Showed no edema. Neurologic exam: Follows commands, moves all 4 extremities. His echocardiogram from 03/11 shows left ventricular ejection fraction of 65% with normal wall motion. His Pro BNP level has not been checked. All his troponins were negative. Most recent EKG from the moment after conversion was sinus rhythm. IMPRESSION: 1. Patient who presented with paroxysmal supraventricular tachycardia. He has converted to sinus rhythm. 2. Patient who has computed tomography evidence of 3 vessel coronary atherosclerosis on recent pulmonary arteriogram from November 2018. 3. History of hypertension. 4. History of hyperlipidemia. 5. Chronic obstructive pulmonary disease. 6. History of cancer of the prostate with metastasis. RECOMMENDATIONS: At this time, the patient appears to be stable. I will continue present therapy. We will discuss with Dr. Hoda Mckay. He has already put the request for a myocardial perfusion stress test. Further advice will be forthcoming. cc: MD Michele Combs MD [facility]
[2019-03-15] MEDS: CARDIZEM 100 MG/NS 100 MG/100 ML IVPB IV SCH (12:46)
[2019-03-15] MEDS: PRILOSEC PO SCH (13:06)
[2019-03-15] MEDS ORDERED: LEXISCAN ONE (13:30)
[2019-03-15] MEDS ORDERED: AMINOPHYLLINE ONE (13:44)
[2019-03-15] MEDS: NICODERM PATCH TD SCH (14:47)
--- NOTE | 2019-03-15 17:36 | Diag Imaging Result Document ---
PROCEDURE NAME: MYOCARDIAL PERF SCAN, STR/REST - 03/15/2019 STUDY: Rest/stress Lexiscan myocardial perfusion study. INDICATION: Patient with chest discomfort. Abnormal EKG. Supraventricular tachycardia. DESCRIPTION: The patient came into the nuclear lab and received a resting injection of technetium 99 sestamibi 13.7 mCi. Multiple tomographic views of the cardiac structures were obtained at rest. Subsequently, the patient underwent infusion of Lexiscan 0.4 mg. At peak infusion he was injected with technetium 99 sestamibi 39.6 mCi. Multiple tomographic views of the cardiac structures were obtained following the completion of the protocol. SUMMARY OF THE ELECTROCARDIOGRAPH PORTION OF THE STUDY: Resting ECG shows sinus rhythm with rate of 68 beats per minute. Resting ECG shows right bundle branch block with diffuse repolarization abnormality. Blood pressure is 161/72. During the protocol the heart rate increased to 85 beats per minute. The blood pressure dropped to 128/64 and then picked back up to 162/71. The patient reported some moderate pressure in the chest that got worse and then later on improved with aminophylline. The ECG showed no ischemic changes. Following the completion of the test, the heart rate and blood pressure returned back to their baseline. In summary, the electrocardiographic response to infusion of Lexiscan is deemed to be nonspecific. SUMMARY OF THE MYOCARDIAL PERFUSION PORTION OF THE STUDY: Poststress tomographic views of the left ventricle showed normal homogeneous distribution of the radiotracer throughout the entire left ventricular myocardium. There is no evidence of any postexercise defect. The rest images showed normal perfusion. The polar plots revealed that there is no evidence of neither inducible ischemia nor myocardial scar. The gated SPECT showed normal left ventricular systolic function. Ejection fraction is 74%. Normal ventricular volumes and no wall motion abnormality. The lung/heart ratio is normal. TID is normal. CONCLUSION: In summary, this study shows: 1. Normal or nonspecific electrocardiographic response to an infusion of Lexiscan. 2. Normal poststress myocardial perfusion scan. There is no scintigraphic evidence of pharmacologically induced myocardial ischemia. 3. Normal left ventricular systolic function. Ejection fraction is 74% with normal ventricular volumes and no wall motion abnormality. The study represents a low risk for ischemic events. cc: MD Michele Combs MD
--- NOTE | 2019-03-15 21:33 | PROGRESS NOTE ---
DATE: 03/15/2019 SUBJECTIVE: The patient is doing well. Last night he had a SVT. He has underlying right bundle. He is in sinus. No chest pain. REVIEW OF SYSTEMS: None reported. OBJECTIVE: Vital Signs: Stable. HEENT: Within normal limits. Neck: Supple. Chest: Clear. Heart: Sounds are regular. ASSESSMENT AND PLAN: 1. Supraventricular tachycardia with chest pain. Waiting for nuclear medicine scan. After that, further recommendations will be followed. The patient was on Cardizem before. He has underlying right bundle and metastatic prostate cancer stable. 2. Tobacco abuse. Quit smoking and will follow up. Currently is on Multaq and based on that further recommendations will be followed. LEVEL OF DOCUMENTATION: 25 minutes. cc: Michele Mckay MD
[2019-03-16] MEDS: PRILOSEC PO SCH (06:40)
[2019-03-16 07:45] VITALS: BP 166/61
[2019-03-16] MEDS: LOPRESSOR PO SCH (08:04)
[2019-03-16] MEDS: ASPIRIN PO SCH (08:04)
[2019-03-16] MEDS: FLOMAX PO SCH (08:04)
[2019-03-16] MEDS: MULTAQ PO SCH (08:04)
[2019-03-16] MEDS: CITRACAL + D PO SCH (08:04)
[2019-03-16] MEDS: LOVENOX SUBQ SCH (08:05)
[2019-03-16] MEDS: NICODERM PATCH TD SCH (08:05)
--- NOTE | 2019-03-16 20:12 | DISCHARGE SUMMARY ---
ADMISSION DATE: 03/11/2019 DISCHARGE DATE: 03/16/2019 DISCHARGING DIAGNOSIS: 1. Recurrent supraventricular tachycardia with underlying right bundle branch block. 2. Anemia due to GI bleeding with rectal ulcer, better. 3. Metastatic prostate cancer under the care of Dr. Perez. 4. Abnormal EKG with right bundle. 5. COPD. 6. Deafness. 7. Hypertension. 8. Hyperlipidemia. 9. PAD with status post right carotid endarterectomy and MARILYN 0.5 in both legs. 10. Ongoing tobacco abuse. 11. Seborrheic lesion on the right face. 12. Hypocalcemia due to Zometa. 13. T6 metastatic disease. CONSULTS: Dr. Tyrone Whittington. PROCEDURES: Myocardial perfusion scan, no evidence of reversible ischemia. Echocardiography report, mild left ventricular hypertrophy. EF is 65%. BRIEF HISTORY: Please see the H P that was done by hospitalist. In brief, he is a 78-year-old white male with above problems came in with SVT, wide complex tachycardia with chest pain and EKG changes in the lateral leads. Patient was resuscitated in the ER, given Adenocard. Subsequently converted to sinus. The patient was admitted in PVC. Hospital course was ruled out for SD. Normal thyroid function tests. He was on Cardizem before and has been changed to the beta blockers and Multaq by the personal lines underwriter. He had a stress test done which was negative. He was ruled out for structural heart disease. He was relegated to medical management by Dr. Whittignton. Rest of the hospital course was uneventful. He was admitted a month ago for GI bleeding that was stable. LABORATORY DATA FOLLOWS: CBC: White cell count 5.4, hematocrit 40, platelets 258,000. Sodium 142, potassium 3.6, chloride 102, BUN 12, creatinine 1.1, calcium 8.4. Cardiac enzymes were negative. Thyroid function tests were normal. DISPOSITION: The patient was discharged home in stable condition with the following instructions: Flomax 0.4 mg p.o. b.i.d., simvastatin 20 daily, calcium with vitamin D 1 tablet daily, Symbicort 1 puff p.o. b.i.d., aspirin 81 mg daily, Multaq 400 p.o. b.i.d., Nicotrol patches once daily, Prilosec 40 daily, metoprolol 50 p.o. b.i.d. He is not a candidate for anticoagulation because of recent GI bleeding. Quit smoking. Continue to see Dr. Perez for metastatic prostate cancer with status post right hip replacement and T6 metastatic lesion. He was up-to-date on flu vaccine and pneumococcal vaccine. Follow up in my office in 10 days. cc: MD Tyrone Frazier MD Sammy Becdach, MD
== END 2019-03-16 09:56 | disposition home health service (06) | DRG 309 ==
LOC: ED 19:00 → EDIPHOLD 22:43 → SUATTDRO 22:43 → 2N 03-12 13:15
PROVIDERS: ADMIT Internal Medicine; ATTEND Internal Medicine